=== PATIENT | male | born 1995 | race Caucasian/White ===

== ENCOUNTER 2018-03-05 22:20 | Emergency (ER) | payer MEDICAID, OTHER ==
--- NOTE | 2018-03-05 22:48 | EDM.PDOC ---
ED HPI GENERAL MEDICAL PROBLEM - General Chief Complaint: Lower Extremity Injury/Pain Stated Complaint: STUBBED LEFT TOE Time Seen by Provider: 03/05/18 22:31 Source of Information: Reports: Patient History Limitations: Reports: No Limitations - History of Present Illness INITIAL COMMENTS - FREE TEXT/NARRATIVE: This is a 22-year-old male. This evening she stubbed his left fourth toe on a corner of a wall. The nail started bleeding and he thought he might have an ingrown nail prior to this and he is concerned about the bleeding and may be infection. He is up-to-date with his tetanus. He says the pain went away pretty quickly doesn't think the toe is broken and he doesn't want any x-rays. Left 4-Ring toe Pain Score (Numeric/FACES): 3 - Related Data Allergies Allergy/AdvReac Type Severity Reaction Status Date / Time No Known Allergies Allergy Verified 09/16/14 03:54 Home Meds: Home Meds . [No Known Home Meds] 06/07/14 [History] Past Medical History - Past Health History Medical/Surgical History: Denies Medical/Surgical History - Past Surgical History HEENT Surgical History: Reports: Oral Surgery Social & Family History - Tobacco Use Smoking Status *Q: Former Smoker Years of Tobacco use: 3 Used Tobacco, but Quit: Yes Month/Year Tobacco Last Used: 6 months - Caffeine Use Caffeine Use: Reports: Coffee, Soda, Tea - Alcohol Use Days Per Week of Alcohol Use: 0 - Recreational Drug Use Recreational Drug Use: No Recreational Drug Type: Reports: Marijuana/Hashish Review of Systems - Review of Systems Review Of Systems: See Below Constitutional: Reports: No Symptoms Eyes: Reports: No Symptoms Ears: Reports: No Symptoms Nose: Reports: No Symptoms Mouth/Throat: Reports: No Symptoms Respiratory: Reports: No Symptoms Cardiovascular: Reports: No Symptoms GI/Abdominal: Reports: No Symptoms Genitourinary: Reports: No Symptoms Musculoskeletal: Reports: Other (Injury to the left fourth toe) Skin: Reports: No Symptoms Neurological: Reports: No Symptoms Psychiatric: Reports: No Symptoms ED EXAM, GENERAL - Physical Exam Exam: See Below Exam Limited By: No Limitations General Appearance: Alert, WD/WN, No Apparent Distress Eye Exam: Bilateral Eye: Normal Inspection Ears: Normal External Exam Nose: Normal Inspection Throat/Mouth: Normal Inspection, Normal Lips, Normal Voice, No Airway Compromise Head: Normocephalic Neck: Supple Respiratory/Chest: No Respiratory Distress Back Exam: Full Range of Motion Extremities: Normal Inspection, Normal Range of Motion, Other (Left fourth toe shows some bleeding around the nail and a mild subungual hematoma noted, the nail is not lifted off the nail bed at this time. There is no obvious infection noted, there is no other toe injury on that left foot) Neurological: Alert, Oriented Psychiatric: Normal Affect, Normal Mood Skin Exam: Warm, Dry Course - Vital Signs Last Recorded V/S: Last Vital Signs Temp 98.9 F 03/05/18 22:33 Pulse 96 03/05/18 22:33 Resp 20 03/05/18 22:33 BP 138/75 03/05/18 22:33 Pulse Ox 96 03/05/18 22:33 - Re-Assessments/Exams Free Text/Narrative Re-Assessment/Exam: 03/05/18 22:55 The left fourth toe was cleaned and dressed. Departure - Departure Time of Disposition: 23:00 Disposition: Home, Self-Care 01 Condition: Good Clinical Impression: Contusion of fourth toe, left Qualifiers: Encounter type: initial encounter Qualified Code(s): S90.122A - Contusion of left lesser toe(s) without damage to nail, initial encounter Subungual hematoma of fourth toe of left foot Qualifiers: Encounter type: initial encounter Qualified Code(s): S90.222A - Contusion of left lesser toe(s) with damage to nail, initial encounter - Discharge Information Referrals: PCP,None [Primary Care Provider] - Forms: ED Department Discharge Additional Instructions: Keep the wound clean and dry and covered and use the triple antibiotic ointment , you may take a shower and wash it gently, realized that toenail will come off in the next couple of weeks and a new one will grow back in its place, recheck with your family doctor in 7-10 days or return to the ER if needed
== END 2018-03-05 23:15 | disposition home or self-care (01) ==
LOC: JD.ED 22:20
DX: S90.222A Contusion of left lesser toe(s) with damage to nail, initial encounter (principal); Z87.891 Personal history of nicotine dependence; W22.8XXA Striking against or struck by other objects, initial encounter
CPT/HCPCS: 99282; 99283

== ENCOUNTER 2020-01-24 01:47 | Day surgery (SDC) | payer MEDICAID, OTHER ==
[2020-01-24] MEDS ORDERED: HYDROmorphone 1 MG/ML Syringe IVPUSH ONE (02:13)
[2020-01-24] MEDS ORDERED: Metoclopramide 10 MG/2 ML SDV IVPUSH ONE (02:13)
--- NOTE | 2020-01-24 02:20 | EDM.PDOC ---
ED HPI GENERAL MEDICAL PROBLEM - General Chief Complaint: Abdominal Pain Stated Complaint: abdominal pain Time Seen by Provider: 01/24/20 02:05 Source of Information: Reports: Patient History Limitations: Reports: No Limitations - History of Present Illness INITIAL COMMENTS - FREE TEXT/NARRATIVE: 24-year-old male presents to the ED with diffuse right lower quadrant abdominal pain that is been present since yesterday morning upon awakening. Pain has gradually intensified over the last 20 hours. Last meal was about 1400 hrs. yesterday. Vomited just before coming to the ED of food that he had eaten at 1400 hrs. He vomited twice earlier yesterday as well. Macy hot and flushed and he might be running a fever. Appreciates the pain is worse with deep breathing and coughing. He also appreciate the pain was much worse with hitting any bumps on the rolled driving to the hospital. He has had no pain with voiding. He did have a small bowel movement prior to coming to the ED which was slightly on the looser side without blood. He has had no previous abdominal surgery. Only previous surgery is that is wisdom tooth extraction under anesthetic Onset: Sudden Onset Date: 01/23/20 Onset Time: 07:00 Duration: Hour(s):, Getting Worse Location: Reports: Abdomen Quality: Reports: Ache Severity: Severe Improves with: Reports: Rest (9 out of 10) Worsens with: Reports: Other Context: Denies: Activity (Patient with movement and sitting in the motor vehicle driving.), Exercise, Sick Contact, Trauma, Other Associated Symptoms: Reports: Diaphoresis, Fever/Chills, Loss of Appetite, Nausea/Vomiting, Weakness (Just before coming to the ED.). Denies: No Other Symptoms, Confusion, Chest Pain, Cough, cough w sputum, Headaches, Malaise, Rash , Seizure, Shortness of Breath, Syncope Treatments BRAND LEADER: Reports: Other (see below) (1.) Right Lower Abdomen Pain Score (Numeric/FACES): 8 - Related Data Allergies Allergy/AdvReac Type Severity Reaction Status Date / Time No Known Allergies Allergy Verified 01/24/20 01:56 Home Meds: Home Meds . [No Known Home Meds] 06/07/14 [History] Past Medical History - Past Health History Medical/Surgical History: Denies Medical/Surgical History - Past Surgical History HEENT Surgical History: Reports: Oral Surgery (Or wisdom teeth extraction under sedation) Social & Family History - Tobacco Use Smoking Status *Q: Never Smoker Second Hand Smoke Exposure: No - Caffeine Use Caffeine Use: Reports: Coffee - Recreational Drug Use Recreational Drug Use: No - Living Situation & Occupation Living situation: Reports: Single Occupation: Employed ED ROS GENERAL - Review of Systems Review Of Systems: See Below Constitutional: Reports: Fever, Chills, Malaise, Weakness, Fatigue, Decreased Appetite. Denies: Weight Loss HEENT: Reports: No Symptoms Respiratory: Reports: No Symptoms Cardiovascular: Reports: No Symptoms Endocrine: Reports: No Symptoms GI/Abdominal: Reports: Abdominal Pain (Worsened by touching the area in the right lower quadrant.), Decreased Appetite, Nausea, Vomiting. Denies: Constipation, Diarrhea, Difficulty Swallowing, Distension, Flatus, Hematemesis, Hematochezia, Melena, Mucous in Stool, Stool Incontinence, Other (To 3 times last 24 hours) : Reports: No Symptoms Musculoskeletal: Reports: No Symptoms Skin: Reports: No Symptoms Neurological: Reports: No Symptoms Psychiatric: Reports: No Symptoms Hematologic/Lymphatic: Reports: No Symptoms Immunologic: Reports: No Symptoms ED EXAM, GI/ABD - Physical Exam Exam: See Below Exam Limited By: No Limitations General Appearance: Alert, WD/WN, Moderate Distress, Other (Temperature is 36.8. Pulse is 97 and sinus respiratory is 18 with O2 sats of 96% on room air BP is 131/77.) Eyes: Bilateral: Normal Appearance (No scleral icterus.) Throat/Mouth: Normal Inspection, Normal Lips, Normal Teeth, Normal Oropharynx Head: Atraumatic, Normocephalic Neck: Normal Inspection, Supple, Non-Tender, Full Range of Motion. No: Lymphadenopathy (L), Lymphadenopathy (R) Respiratory/Chest: No Respiratory Distress, Lungs Clear, Normal Breath Sounds, No Accessory Muscle Use, Chest Non-Tender Cardiovascular: Normal Peripheral Pulses, Regular Rate, Rhythm, No Edema, No Gallop, No Murmur, No Rub GI/Abdominal Exam: No Organomegaly, Guarding, Rebound (Over McBurney's point.), Tender (To light percussion in the right lower quadrant of the abdomen over McBurney's point.), Abnormal Bowel Sounds (All signs are very quiesced sent in all 4 quadrants.), Other. No: Distended, Hepatomegaly, Splenomegaly (Male) Exam: No Hernia (No surgical scars) Back Exam: Normal Inspection, Full Range of Motion. No: CVA Tenderness (L), CVA Tenderness (R) Extremities: Normal Inspection, Normal Range of Motion, Non-Tender, No Pedal Edema Neurological: Alert, Oriented, CN II-XII Intact, Normal Cognition Psychiatric: Anxious Skin Exam: Warm, Dry, Intact, Normal Color, Diaphoretic (After having IV started. Feeling very nauseated.) Course - Vital Signs Last Recorded V/S: Last Vital Signs Temp 36.8 C 01/24/20 01:59 Pulse 97 01/24/20 01:59 Resp 18 01/24/20 01:59 BP 131/77 01/24/20 01:59 Pulse Ox 96 01/24/20 01:59 - Orders/Labs/Meds Orders: Active Orders 24 hr Category Date Time Status Patient Status [ADT] Routine ADT 01/24/20 06:16 Active Abdomen Pelvis w Cont [CT] Stat Exams 01/24/20 02:14 Taken URINALYSIS W/MICROSCOPIC [UA W/MICROSCOPIC] [URIN] Stat Lab 01/24/20 02:12 Ordered Dextrose 5%-0.9% NaCl [Dextrose 5%-Normal Saline] 1,000 Med 01/24/20 02:30 Active ml IV ASDIRECTED Dextrose 5%-0.9% NaCl [Dextrose 5%-Normal Saline] 1,000 Med 01/24/20 03:45 Active ml IV ASDIRECTED Schedule Procedure [COMM] Stat Oth 01/24/20 06:15 Ordered Medication Orders Dextrose/Sodium Chloride (Dextrose 5%-Normal Saline) 1,000 mls @ 999 mls/hr IV ASDIRECTED HUBERT Last Admin: 01/24/20 02:23 Dose: 999 mls/hr Dextrose/Sodium Chloride (Dextrose 5%-Normal Saline) 1,000 mls @ 150 mls/hr IV ASDIRECTED HUBERT Last Admin: 01/24/20 03:33 Dose: 150 mls/hr Labs: Laboratory Tests 01/24/20 01/24/20 01/24/20 Range/Units 02:00 02:00 02:20 WBC 16.24 H (4.23-9.07) K/mm3 RBC 4.87 (4.63-6.08) M/mm3 Hgb 15.5 (13.7-17.5) gm/dl Hct 43.9 (40.1-51.0) % MCV 90.1 (79.0-92.2) fl MCH 31.8 (25.7-32.2) pg MCHC 35.3 (32.2-35.5) g/dl RDW Std Deviation 40.3 (35.1-43.9) fL Plt Count 257 (163-337) K/mm3 MPV 9.6 (9.4-12.3) fl Neutrophils % (Manual) 74 H (40-60) % Band Neutrophils % 0 (0-10) % Lymphocytes % (Manual) 17 L (20-40) % Atypical Lymphs % 0 % Monocytes % (Manual) 6 (2-10) % Eosinophils % (Manual) 2 (0.8-7.0) % Basophils % (Manual) 1 (0.2-1.2) Platelet Estimate Adequate RBC Morph Comment Normal Sodium 138 (136-145) mEq/L Potassium 3.6 (3.5-5.1) mEq/L Chloride 99 (98-107) mEq/L Carbon Dioxide 24 (21-32) mEq/L Anion Gap 18.6 H (5-15) BUN 10 (7-18) mg/dL Creatinine 1.2 (0.7-1.3) mg/dL Est Cr Clr Drug Dosing 113.45 mL/min Estimated GFR (MDRD) > 60 (>60) mL/min BUN/Creatinine Ratio 8.3 L (14-18) Glucose 114 H (74-106) mg/dL Lactic Acid 1.8 (0.4-2.0) mmol/L Calcium 8.9 (8.5-10.1) mg/dL Total Bilirubin 0.8 (0.2-1.0) mg/dL AST 45 H (15-37) U/L ALT 148 H (16-63) U/L Alkaline Phosphatase 84 (46-116) U/L C-Reactive Protein 0.7 (<1.0) mg/dL Total Protein 7.7 (6.4-8.2) g/dl Albumin 4.2 (3.4-5.0) g/dl Globulin 3.5 gm/dL Albumin/Globulin Ratio 1.2 (1-2) Lipase 100 (73-393) U/L Meds: Medications Generic Name Dose Route Start Last Admin Trade Name Trevor PRN Reason Stop Dose Admin Dextrose/Sodium Chloride 1,000 mls @ 999 mls/hr 01/24/20 02:30 01/24/20 02:23 Dextrose 5%-Normal Saline IV 999 mls/hr ASDIRECTED HUBERT Administration Dextrose/Sodium Chloride 1,000 mls @ 150 mls/hr 01/24/20 03:45 01/24/20 03:33 Dextrose 5%-Normal Saline IV 150 mls/hr ASDIRECTED HUBERT Administration Discontinued Medications Generic Name Dose Route Start Last Admin Trade Name Trevor PRN Reason Stop Dose Admin Fentanyl Confirm 01/24/20 05:53 Sublimaze Administered 01/24/20 05:54 Dose 250 mcg .ROUTE .STK-MED ONE Hydromorphone HCl 1 mg 01/24/20 02:13 01/24/20 02:24 Dilaudid IVPUSH 01/24/20 02:14 1 mg ONETIME ONE Administration Ertapenem 1 gm/ Sodium 50 mls @ 100 mls/hr 01/24/20 03:12 01/24/20 03:28 Chloride IV 01/24/20 03:41 100 mls/hr ONETIME ONE Administration Lactated Ringer's Confirm 01/24/20 05:45 01/24/20 06:20 Ringers, Lactated Administered 01/24/20 05:46 Not Given Dose 1,000 mls @ as directed .ROUTE .STK-MED ONE Lidocaine HCl Confirm 01/24/20 05:53 Xylocaine-Mpf 1% Administered 01/24/20 05:54 Dose 4 mls @ as directed .ROUTE .STK-MED ONE Lidocaine HCl Confirm 01/24/20 06:00 Xylocaine 1% Administered 01/24/20 06:01 Dose 50 ml .ROUTE .STK-MED ONE Lorazepam 1 mg 01/24/20 03:14 01/24/20 03:25 Ativan IVPUSH 01/24/20 03:15 1 mg ONETIME ONE Administration Metoclopramide HCl 10 mg 01/24/20 02:13 01/24/20 02:23 Reglan IVPUSH 01/24/20 02:14 10 mg ONETIME ONE Administration Midazolam HCl Confirm 01/24/20 05:53 Versed 1 Mg/Ml Administered 01/24/20 05:54 Dose 2 mg .ROUTE .STK-MED ONE Ondansetron HCl Confirm 01/24/20 05:53 Zofran Administered 01/24/20 05:54 Dose 4 mg .ROUTE .STK-MED ONE Propofol Confirm 01/24/20 05:53 Diprivan 20 Ml Administered 01/24/20 05:54 Dose 200 mg .ROUTE .STK-MED ONE Rocuronium [place] Confirm 01/24/20 05:53 Zemuron Administered 01/24/20 05:54 Dose 50 mg .ROUTE .STK-MED ONE - Radiology Interpretation Free Text/Narrative:: 24-year-old male presents to the ED with gradually worsening right and since awakening yesterday morning about 0 700 he states partway through the day he M had emesis x2. Bilious initially. Last meal was at 1400 hrs. yesterday. Since then he has lost his appetite. He vomited about 1700 hrs. last night lost all the food that he had eaten at 1400 hrs. He vomited a small amount of bilious material prior to coming to the ED. He also had one small bowel movement which was slightly on the looser side without any blood just prior to coming to the ED. Due to right lower quadrant abdominal pain and when he pushed on the area gets severe. Pain is worsened by walking coughing and laughing. It was also worsened by riding in the vehicle on the way to the hospital. He has had no previous abdominal surgery. Lamination he appears to be mildly febrile. He is also mildly diaphoretic but feels very nauseated at this time. Exam reveals hardly any bowel sounds present. Tender to percussion in the right lower quadrant over McBurney's point with guarding and rebound highly suggestive of acute appendicitis. No other organomegaly or masses were noted. Plan routine labs will be done to include a serum lipase and CRP. Lactic acid as well. He will receive IV D5 normal saline. Given Reglan 10 mg IV with Dilaudid 1 mg q. pain relief. He has enough body adipose tissue to have CT scan of the abdomen with IV contrast only. - Re-Assessments/Exams Free Text/Narrative Re-Assessment/Exam: 01/24/20 03:05 White count is elevated at 16.24 with 74% neutrophils and no bands cells reported. Hemoglobin is 15.5 with hematocrit of 43.9. Platelet count is 257,000. Sodium is 136 with a potassium of 3.6. Chloride is 99 with a bicarb of 24. Anion gap is elevated at 18.6. BUN is 10 with a creatinine of 1.2. GFR is greater than 60. Glucose is 114 lactic acid is 1.8. Calcium is 8.9. Liver function reveals a normal bilirubin at 0.8. AST is mildly elevated at 45 and ALT is elevated at 148. Alk phos days is 84. C-reactive protein is 0.7. Total protein is 7.7 with an albumin fraction of 4.2. Lipase is [address] of the abdomen pelvis has been completed with IV contrast only. Visualized portions of the lower diaphragm and lungs are clear. Liver is homogeneous with any out any intraductal dilatation. Gallbladder does not contain any calcified gallstones. Pancreas is normal and common bile duct is normal. Adrenal glands are normal. Both kidneys are within normal limits and fill with contrast with no obstruction of the ureters. Bladder fills on delayed film. There is evidence of acute appendicitis in the right lower quadrant with maximal dilatation of the appendix to be 16 mm. It appears to be fluid-filled with an appendicolith. There is several small lymph nodes around this area that are slightly enlarged. There is mild periappendiceal inflammation and stranding. D I will discuss the case with on-call surgeon Dr Valenzuela so that he can be started on antibiotics and likely be operated on later this morning. At present the patient states his pain is controlled and he is feeling much improved. 01/24/20 03:[address] Valenzuela and he has accepted the care of this patient. He will remin in the ED until time of surgery as the hospital is on diversion. He requests a dose of Invanz 1gm IV at this time. Patient will be given Ativan 1mg IV so that he might get some rest prior to surgery. 01/24/20 06:23 Dr Valenzuela is here now and will see the patient in consultation with a view to taking him to surgery Departure - Departure Time of Disposition: 06:24 Disposition: DC/Tfer to [facility] Condition: Fair Clinical Impression: Appendicitis Qualifiers: Appendicitis type: acute appendicitis Acute appendicitis type: with localized peritonitis Appendicitis gangrene presence: unspecified whether gangrene present Appendicitis perforation presence: without perforation Appendicitis abscess presence: without abscess Qualified Code(s): K35.30 - Acute appendicitis with localized peritonitis, without perforation or gangrene - Discharge Information Sepsis Event Note - Evaluation Sepsis Screening Result: No Definite Risk - Focused Exam Vital Signs: Vital Signs Temp Pulse Resp BP Pulse Ox 01/24/20 01:59 36.8 C 97 18 131/77 96 Date Exam was Performed: 01/24/20 Time Exam was Performed: 06:24 - My Orders Last 24 Hours: My Active Orders 01/24/20 02:12 URINALYSIS W/MICROSCOPIC [UA W/MICROSCOPIC] [URIN] Stat 01/24/20 02:14 Abdomen Pelvis w Cont [CT] Stat 01/24/20 02:30 Dextrose 5%-0.9% NaCl [Dextrose 5%-Normal Saline] 1,000 ml IV ASDIRECTED 01/24/20 03:45 Dextrose 5%-0.9% NaCl [Dextrose 5%-Normal Saline] 1,000 ml IV ASDIRECTED - Assessment/Plan Last 24 Hours: My Active Orders 01/24/20 02:12 URINALYSIS W/MICROSCOPIC [UA W/MICROSCOPIC] [URIN] Stat 01/24/20 02:14 Abdomen Pelvis w Cont [CT] Stat 01/24/20 02:30 Dextrose 5%-0.9% NaCl [Dextrose 5%-Normal Saline] 1,000 ml IV ASDIRECTED 01/24/20 03:45 Dextrose 5%-0.9% NaCl [Dextrose 5%-Normal Saline] 1,000 ml IV ASDIRECTED
[2020-01-24] MEDS ORDERED: Dextrose 5%-0.9% NaCl 1,000 ML IV SCH ×2 (02:30→03:45)
[2020-01-24] MEDS ORDERED: Ertapenem 1 GM in Sodium Chloride 0.9% 50 ML IV ONE (03:12)
[2020-01-24] MEDS ORDERED: LORazepam 2 MG/ML SDV IVPUSH ONE (03:14)
[2020-01-24] MEDS ORDERED: Lactated Ringers 1,000 ML ONE (05:45)
[2020-01-24] MEDS ORDERED: Midazolam 1 MG/ML 2 ML SDV ONE (05:53)
[2020-01-24] MEDS ORDERED: fentaNYL 250 MCG/5 ML SDV ONE (05:53)
[2020-01-24] MEDS ORDERED: Propofol 200 MG/20 ML SDV ONE (05:53)
[2020-01-24] MEDS ORDERED: Lidocaine 1% 4 ML ONE (05:53)
[2020-01-24] MEDS ORDERED: Ondansetron 4 MG/2 ML SDV ONE ×2 (05:53→07:49)
[2020-01-24] MEDS ORDERED: Rocuronium 50 MG/5 ML Vial ONE (05:53)
[2020-01-24] MEDS ORDERED: Lidocaine 1% 50 ML MDV ONE (06:00)
--- NOTE | 2020-01-24 06:06 | PCM.PREANE ---
Preanesthetic Assessment - Procedure Proposed Procedure: lap appy - Anesthesia/Transfusion/Family Hx Anesthesia History: Prior Anesthesia Without Reaction Family History of Anesthesia Reaction: No Transfusion History: No Prior Transfusion(s) - Review of Systems General: No Symptoms Pulmonary: Shortness of Breath (can't get a deep breath), Cough (because vomiting so much) Cardiovascular: No Symptoms Gastrointestinal: Abdominal Pain (started thursday am), Nausea, Vomiting Neurological: No Symptoms Other: Reports: None, Sinus Problem - Physical Assessment NPO Status Date: 01/23/20 NPO Status Time: 12:00 Vital Signs: Last Vital Signs Temp 98.2 F 01/24/20 01:59 Pulse 97 01/24/20 01:59 Resp 18 01/24/20 01:59 BP 131/77 01/24/20 01:59 Pulse Ox 96 01/24/20 01:59 Height: 6 ft 3 in Weight: 108.862 kg ASA Class: 2E Mental Status: Alert & Oriented x3 Airway Class: Mallampati = 1 Dentition: Reports: Normal Dentition Thyro-Mental Finger Breadths: 3 Mouth Opening Finger Breadths: 3 ROM/Head Extension: Full Lungs: Clear to Auscultation, Normal Respiratory Effort Cardiovascular: Regular Rate, Regular Rhythm - Lab Values: Laboratory Last Values WBC 16.24 K/mm3 (4.23-9.07) H 01/24/20 02:00 RBC 4.87 M/mm3 (4.63-6.08) 01/24/20 02:00 Hgb 15.5 gm/dl (13.7-17.5) 01/24/20 02:00 Hct 43.9 % (40.1-51.0) 01/24/20 02:00 MCV 90.1 fl (79.0-92.2) 01/24/20 02:00 MCH 31.8 pg (25.7-32.2) 01/24/20 02:00 MCHC 35.3 g/dl (32.2-35.5) 01/24/20 02:00 RDW Std Deviation 40.3 fL (35.1-43.9) 01/24/20 02:00 Plt Count 257 K/mm3 (163-337) 01/24/20 02:00 MPV 9.6 fl (9.4-12.3) 01/24/20 02:00 Neutrophils % (Manual) 74 % (40-60) H 01/24/20 02:00 Band Neutrophils % 0 % (0-10) 01/24/20 02:00 Lymphocytes % (Manual) 17 % (20-40) L 01/24/20 02:00 Atypical Lymphs % 0 % 01/24/20 02:00 Monocytes % (Manual) 6 % (2-10) 01/24/20 02:00 Eosinophils % (Manual) 2 % (0.8-7.0) 01/24/20 02:00 Basophils % (Manual) 1 (0.2-1.2) 01/24/20 02:00 Platelet Estimate Adequate 01/24/20 02:00 RBC Morph Comment Normal 01/24/20 02:00 Sodium 138 mEq/L (136-145) 01/24/20 02:00 Potassium 3.6 mEq/L (3.5-5.1) 01/24/20 02:00 Chloride 99 mEq/L (98-107) 01/24/20 02:00 Carbon Dioxide 24 mEq/L (21-32) 01/24/20 02:00 Anion Gap 18.6 (5-15) H 01/24/20 02:00 BUN 10 mg/dL (7-18) 01/24/20 02:00 Creatinine 1.2 mg/dL (0.7-1.3) 01/24/20 02:00 Est Cr Clr Drug Dosing 113.45 mL/min 01/24/20 02:00 Estimated GFR (MDRD) > 60 mL/min (>60) 01/24/20 02:00 BUN/Creatinine Ratio 8.3 (14-18) L 01/24/20 02:00 Glucose 114 mg/dL (74-106) H 01/24/20 02:00 Lactic Acid 1.8 mmol/L (0.4-2.0) 01/24/20 02:20 Calcium 8.9 mg/dL (8.5-10.1) 01/24/20 02:00 Total Bilirubin 0.8 mg/dL (0.2-1.0) 01/24/20 02:00 AST 45 U/L (15-37) H 01/24/20 02:00 ALT 148 U/L (16-63) H 01/24/20 02:00 Alkaline Phosphatase 84 U/L (46-116) 01/24/20 02:00 C-Reactive Protein 0.7 mg/dL (<1.0) 01/24/20 02:00 Total Protein 7.7 g/dl (6.4-8.2) 01/24/20 02:00 Albumin 4.2 g/dl (3.4-5.0) 01/24/20 02:00 Globulin 3.5 gm/dL 01/24/20 02:00 Albumin/Globulin Ratio 1.2 (1-2) 01/24/20 02:00 Lipase 100 U/L (73-393) 01/24/20 02:00 - Allergies Allergies/Adverse Reactions: Allergies Allergy/AdvReac Type Severity Reaction Status Date / Time No Known Allergies Allergy Verified 01/24/20 01:56 - Blood Blood Available: No - Acknowledgements Anesthesia Type Planned: General Anesthesia Pt an Appropriate Candidate for the Planned Anesthesia: Yes Alternatives and Risks of Anesthesia Discussed w Pt/Guardian: Yes Pt/Guardian Understands and Agrees with Anesthesia Plan: Yes PreAnesthesia Questionnaire - Past Health History Medical/Surgical History: Denies Medical/Surgical History Cardiovascular History: Reports: None Respiratory History: Reports: Other (See Below) (gets pneumonia often- has inhaler) Gastrointestinal History: Reports: GERD (since yesterday) Endocrine/Metabolic History: Reports: Obesity/BMI 30+ - Past Surgical History HEENT Surgical History: Reports: Oral Surgery (Or wisdom teeth extraction under sedation) - History Comment History Comment: muscle relaxant - SUBSTANCE USE Smoking Status *Q: Former Smoker (quit 8 months ago) Tobacco Use Within Last Twelve Months: Cigarettes Second Hand Smoke Exposure: Yes Days Per Week of Alcohol Use: 5 Number of Drinks Per Day: 3 Total Drinks Per Week: 15 Recreational Drug Use History: No - HOME MEDS Home Medications: Home Meds . [No Known Home Meds] 06/07/14 [History] - CURRENT (IN HOUSE) MEDS Current Meds: Current Medications Dextrose/Sodium Chloride (Dextrose 5%-Normal Saline) 1,000 mls @ 999 mls/hr IV ASDIRECTED [facility] Last Admin: 01/24/20 02:23 Dose: 999 mls/hr Dextrose/Sodium Chloride (Dextrose 5%-Normal Saline) 1,000 mls @ 150 mls/hr IV ASDIRECTED [facility] Last Admin: 01/24/20 03:33 Dose: 150 mls/hr Discontinued Medications Fentanyl (Sublimaze) Confirm Administered Dose 250 mcg .ROUTE .STK-MED ONE Stop: 01/24/20 05:54 Hydromorphone HCl (Dilaudid) 1 mg IVPUSH ONETIME ONE Stop: 01/24/20 02:14 Last Admin: 01/24/20 02:24 Dose: 1 mg Ertapenem 1 gm/ Sodium (Chloride) 50 mls @ 100 mls/hr IV ONETIME ONE Stop: 01/24/20 03:41 Last Admin: 01/24/20 03:28 Dose: 100 mls/hr Lactated Ringer's (Ringers, Lactated) Confirm Administered Dose 1,000 mls @ as directed .ROUTE .STK-MED ONE Stop: 01/24/20 05:46 Lidocaine HCl (Xylocaine-Mpf 1%) Confirm Administered Dose 4 mls @ as directed .ROUTE .STK-MED ONE Stop: 01/24/20 05:54 Lorazepam (Ativan) 1 mg IVPUSH ONETIME ONE Stop: 01/24/20 03:15 Last Admin: 01/24/20 03:25 Dose: 1 mg Metoclopramide HCl (Reglan) 10 mg IVPUSH ONETIME ONE Stop: 01/24/20 02:14 Last Admin: 01/24/20 02:23 Dose: 10 mg Midazolam HCl (Versed 1 Mg/Ml) Confirm Administered Dose 2 mg .ROUTE .STK-MED ONE Stop: 01/24/20 05:54 Ondansetron HCl (Zofran) Confirm Administered Dose 4 mg .ROUTE .STK-MED ONE Stop: 01/24/20 05:54 Propofol (Diprivan 20 Ml) Confirm Administered Dose 200 mg .ROUTE .STK-MED ONE Stop: 01/24/20 05:54 Rocuronium Spickard (Zemuron) Confirm Administered Dose 50 mg .ROUTE .STK-MED ONE Stop: 01/24/20 05:54
--- NOTE | 2020-01-24 06:28 | PCM.HP.2 ---
H&P History of Present Illness - General Date of Service: 01/24/20 Admit Problem/Dx: Admission Diagnosis/Problem Admission Diagnosis/Problem Appendectomy Source of Information: Patient History Limitations: Reports: No Limitations - History of Present Illness Initial Comments - Free Text/Narative: Patient started having RLQ abdominal pain since 01/23/2020 AM. Pain was 5/10, progressively worse over the day. Had nausea and vomiting at night. This [employer], the pain became severe and presented to the ED where CT confirmed acute appendicitis. Onset of Symptoms: Reports: Gradual Duration of Symptoms: Reports: Day(s):, Getting Worse Location: Reports: Abdomen Quality: Reports: Ache Severity: Severe Improves with: Reports: Immobilization Worsens with: Reports: Movement Associated Symptoms: Reports: Nausea/Vomiting Right Lower Abdomen Pain Score (Numeric/FACES): 8 - Related Data Allergies/Adverse Reactions: Allergies Allergy/AdvReac Type Severity Reaction Status Date / Time No Known Allergies Allergy Verified 01/24/20 01:56 Home Medications: Home Meds . [No Known Home Meds] 06/07/14 [History] Past Medical History - Past Health History Medical/Surgical History: Denies Medical/Surgical History Cardiovascular History: Reports: None Respiratory History: Reports: Other (See Below) (gets pneumonia often- has inhaler) Gastrointestinal History: Reports: GERD (since yesterday) Endocrine/Metabolic History: Reports: Obesity/BMI 30+ - Past Surgical History HEENT Surgical History: Reports: Oral Surgery (Or wisdom teeth extraction under sedation) - History Comment History Comment: muscle relaxant Social & Family History - Tobacco Use Smoking Status *Q: Former Smoker (quit 8 months ago) Second Hand Smoke Exposure: Yes - Caffeine Use Caffeine Use: Reports: Coffee - Alcohol Use Days Per Week of Alcohol Use: 5 Number of Drinks Per Day: 3 Total Drinks Per Week: 15 - Recreational Drug Use Recreational Drug Use: No - Living Situation & Occupation Living situation: Reports: Single Occupation: Employed H&P Review of Systems - Review of Systems: Review Of Systems: See Below General: Reports: No Symptoms HEENT: Reports: No Symptoms Pulmonary: Reports: No Symptoms Cardiovascular: Reports: No Symptoms Gastrointestinal: Reports: Abdominal Pain, Anorexia Genitourinary: Reports: No Symptoms Musculoskeletal: Reports: No Symptoms Skin: Reports: No Symptoms Psychiatric: Reports: No Symptoms Neurological: Reports: No Symptoms Exam - Exam Exam: See Below - Vital Signs Vital Signs: Last Vital Signs Temp 98.2 F 01/24/20 01:59 Pulse 97 01/24/20 01:59 Resp 18 01/24/20 01:59 BP 131/77 01/24/20 01:59 Pulse Ox 96 01/24/20 01:59 Weight: 108.862 kg - Exam General: Alert, Oriented, Cooperative, Mild Distress HEENT: Conjunctiva Clear Lungs: Clear to Auscultation, Normal Respiratory Effort Cardiovascular: Regular Rate, Regular Rhythm, Normal S1, Normal S2 GI/Abdominal Exam: Soft, No Mass, Guarding (RLQ), Tender (RLQ) - Patient Data Lab Results Last 24 hrs: Laboratory Results - last 24 hr 01/24/20 01/24/20 01/24/20 Range/Units 02:00 02:00 02:20 WBC 16.24 H (4.23-9.07) K/mm3 RBC 4.87 (4.63-6.08) M/mm3 Hgb 15.5 (13.7-17.5) gm/dl Hct 43.9 (40.1-51.0) % MCV 90.1 (79.0-92.2) fl MCH 31.8 (25.7-32.2) pg MCHC 35.3 (32.2-35.5) g/dl RDW Std Deviation 40.3 (35.1-43.9) fL Plt Count 257 (163-337) K/mm3 MPV 9.6 (9.4-12.3) fl Neutrophils % (Manual) 74 H (40-60) % Band Neutrophils % 0 (0-10) % Lymphocytes % (Manual) 17 L (20-40) % Atypical Lymphs % 0 % Monocytes % (Manual) 6 (2-10) % Eosinophils % (Manual) 2 (0.8-7.0) % Basophils % (Manual) 1 (0.2-1.2) Platelet Estimate Adequate RBC Morph Comment Normal Sodium 138 (136-145) mEq/L Potassium 3.6 (3.5-5.1) mEq/L Chloride 99 (98-107) mEq/L Carbon Dioxide 24 (21-32) mEq/L Anion Gap 18.6 H (5-15) BUN 10 (7-18) mg/dL Creatinine 1.2 (0.7-1.3) mg/dL Est Cr Clr Drug Dosing 113.45 mL/min Estimated GFR (MDRD) > 60 (>60) mL/min BUN/Creatinine Ratio 8.3 L (14-18) Glucose 114 H (74-106) mg/dL Lactic Acid 1.8 (0.4-2.0) mmol/L Calcium 8.9 (8.5-10.1) mg/dL Total Bilirubin 0.8 (0.2-1.0) mg/dL AST 45 H (15-37) U/L ALT 148 H (16-63) U/L Alkaline Phosphatase 84 (46-116) U/L C-Reactive Protein 0.7 (<1.0) mg/dL Total Protein 7.7 (6.4-8.2) g/dl Albumin 4.2 (3.4-5.0) g/dl Globulin 3.5 gm/dL Albumin/Globulin Ratio 1.2 (1-2) Lipase 100 (73-393) U/L Result Diagrams: 01/24/20 02:00 01/24/20 02:00 Sepsis Event Note - Evaluation Sepsis Screening Result: No Definite Risk - Focused Exam Vital Signs: Vital Signs Temp Pulse Resp BP Pulse Ox 01/24/20 01:59 98.2 F 97 18 131/77 96 Date Exam was Performed: 01/24/20 Time Exam was Performed: 06:24 Problem List Initiated/Reviewed/Updated: No Orders Last 24hrs: Active Orders 24 hr Category Date Time Status Patient Status [ADT] Routine ADT 01/24/20 06:16 Active Abdomen Pelvis w Cont [CT] Stat Exams 01/24/20 02:14 Taken URINALYSIS W/MICROSCOPIC [UA W/MICROSCOPIC] [URIN] Stat Lab 01/24/20 02:12 Ordered Dextrose 5%-0.9% NaCl [Dextrose 5%-Normal Saline] 1,000 Med 01/24/20 02:30 Active ml IV ASDIRECTED Dextrose 5%-0.9% NaCl [Dextrose 5%-Normal Saline] 1,000 Med 01/24/20 03:45 Active ml IV ASDIRECTED Schedule Procedure [COMM] Stat Oth 01/24/20 06:15 Ordered Medication Orders Dextrose/Sodium Chloride (Dextrose 5%-Normal Saline) 1,000 mls @ 999 mls/hr IV ASDIRECTED [facility] Last Admin: 01/24/20 02:23 Dose: 999 mls/hr Dextrose/Sodium Chloride (Dextrose 5%-Normal Saline) 1,000 mls @ 150 mls/hr IV ASDIRECTED [facility] Last Admin: 01/24/20 03:33 Dose: 150 mls/hr Assessment/Plan Comment:: ACute appendicitis. We will proceed with laparoscopic appendectomy, possible open. We discussed risks, benefits and alternatives. Risks discussed include infection, injury to adjacent structures, infection, abscess, complication including leak, reaction to medications. Questions answered, informed consent obtained. - Mortality Measure Prognosis:: Good
[2020-01-24] MEDS ORDERED: HYDROmorphone 0.5 MG/0.5 ML Syringe ONE ×2 (06:58→07:21)
[2020-01-24] MEDS ORDERED: Ondansetron 4 MG/2 ML SDV IVPUSH PRN ×2 (07:12→10:35)
[2020-01-24] MEDS ORDERED: HYDROmorphone 0.5 MG/0.5 ML Syringe IVPUSH PRN (07:12)
[2020-01-24] MEDS ORDERED: fentaNYL 100 MCG/2 ML SDV IVPUSH PRN (07:12)
--- NOTE | 2020-01-24 07:19 | CT ---
CT abdomen and pelvis Technique: Multiple axial sections were obtained from above the dome of the diaphragm inferiorly through the pubic symphysis. Intravenous contrast was utilized. No oral contrast has been given. Delayed images were also obtained through the pelvis. Comparison: No prior abdominal imaging is available. Findings: Dilated appendix is seen within the right abdomen. Surrounding inflammatory change is noted. Findings are compatible with appendicitis. Appendix extends below the inferior tip of the liver. Visualized lung bases show nothing acute. Diffuse fatty infiltration is identified within the liver. Spleen appears within normal limits. Small hiatal hernia is present. Adrenal glands show no nodule. Kidneys show symmetric contrast enhancement without hydronephrosis or mass. Aorta shows no aneurysm. No retroperitoneal adenopathy or mesenteric abnormalities are seen. No pelvic mass or adenopathy is seen. Delayed images show contrast within the distal ureters and within the bladder. No free fluid is seen. Bone window settings were reviewed which appear within normal limits for the patient's age. No acute osseous finding is identified. Impression: 1. Findings compatible with appendicitis as described above. 2. Fatty infiltration within the liver. 3. Other findings which are nonacute as noted above. Diagnostic code #5 This report was dictated in [place] Standard Time I agree with preliminary report from [facility], finalized on 01/24/20, 4:01 AM Central Time
[2020-01-24] MEDS ORDERED: fentaNYL 100 MCG/2 ML SDV ONE (07:35)
[2020-01-24] MEDS ORDERED: Ketorolac 30 MG/ML SDV ONE (07:35)
[2020-01-24] MEDS ORDERED: Lactated Ringers 1,000 ML IV SCH (08:07)
--- NOTE | 2020-01-24 08:11 | PCM.POSTAN ---
POST ANESTHESIA ASSESSMENT - MENTAL STATUS Mental Status: Alert, Oriented - VITAL SIGNS Vital Signs: Last Vital Signs Temp 98.2 F 01/24/20 01:59 Pulse 97 01/24/20 01:59 Resp 18 01/24/20 01:59 BP 131/77 01/24/20 01:59 Pulse Ox 96 01/24/20 01:59 1500/81 99% 109 12 98.5 - RESPIRATORY Respiratory Status: Respiratory Rate WNL, Airway Patent, O2 Saturation Stable, Supplemental Oxygen - CARDIOVASCULAR CV Status: Pulse Rate WNL, Blood Pressure Stable - GASTROINTESTINAL GI Status: No Symptoms - PAIN Pain Score: 0 - POST OP HYDRATION Hydration Status: Adequate & Stable
--- NOTE | 2020-01-24 08:47 | PCM48HPAN ---
Post Anesthesia Note - EVALUATION WITHIN 48HRS OF ANESTHETIC Vital Signs in Normal Range: Yes Patient Participated in Evaluation: Yes Respiratory Function Stable: Yes Airway Patent: Yes Cardiovascular Function Stable: Yes Hydration Status Stable: Yes Pain Control Satisfactory: Yes Nausea and Vomiting Control Satisfactory: Yes Mental Status Recovered: Yes (rests- no complaints) Vital Signs: Last Vital Signs Temp 98.4 F 01/24/20 08:07 Pulse 97 01/24/20 01:59 Resp 18 01/24/20 08:30 BP 144/73 H 01/24/20 08:30 Pulse Ox 92 L 01/24/20 08:30
--- NOTE | 2020-01-24 09:01 | OR ---
DATE OF OPERATION: 01/24/2020 SURGEON: Brenda Valenzuela MD PREOPERATIVE DIAGNOSIS: Acute appendicitis. POSTOPERATIVE DIAGNOSIS: Acute appendicitis. OPERATION PERFORMED: Laparoscopic appendectomy. ANESTHESIA: General endotracheal. FINDINGS: Inflamed appendix without perforation. COMPLICATIONS: None. ESTIMATED BLOOD LOSS: About 10 mL. INDICATION AND CONSENT: The patient is a 24-year-old male who started having a right lower quadrant abdominal pain since yesterday morning and this progressively got worse. He vomited after dinner and then decided to come to the emergency department. White count was 16. CT scan confirmed acute appendicitis without abscess. I was consulted to see the patient, so the patient confirmed the findings on both the CT and physical examination. I offered the patient laparoscopic appendectomy. We discussed risks, benefits, and alternatives. Risks discussed included, but not limited to, bleeding, infection, abscess, wound complications, injury to the rest of the abdominal structures, leak, reaction to medication, blood clots. The patient agreed to proceed with the procedure and informed consent was obtained. DESCRIPTION OF PROCEDURE: The patient was taken to the operating room, placed in supine position. Following induction of anesthesia, hair was clipped from the abdomen. SCDs were placed. The patient already had received Invanz for antibiotics, so no additional antibiotics were indicated. The patient was appropriately padded. Then, the abdomen was prepped and draped in the usual sterile fashion. A formal time-out was performed prior to the start of the procedure. Began procedure by injecting local anesthetic consisting 1% lidocaine. In the infraumbilical position, incision was made. Umbilical stalk was grasped and elevated and a Veress needle was introduced at this site and the abdomen was insufflated to 15 mmHg with CO2. Then, a 12 trocar was inserted under direct visualization of laparoscope and then laparoscope was inserted into the abdomen. Inspection did not reveal any injury due to trocar insertion or Veress needle insertion. Then, inspection of the rest of the abdomen appeared to be normal. There were no signs of abscess. Next, we placed two additional 5 mm trocar, one in the left lower quadrant and another one in the suprapubic area. The appendix was found to be in the right lower quadrant, this was elevated. The small bowel was draped over the appendix and attempts to remove this were done. However, due to lateral attachment, it was not able to completely be taken off the appendix. Therefore, one more additional 5 mm trocar was placed in the right upper quadrant for retraction and the small bowel was retracted away from the appendiceal base. Window was made under the appendiceal bed with the [place] instrument. Then, a 55 mm blue load was used to transect the appendix at its base using an Endo-PATRIA stapler. Once this was done, the mesoappendix was also transected with a white load 15 mm and the rest of the attachments were taken off with the scissors. The appendix was placed in the Endo Catch bag. The dissection site was suctioned and irrigated. Staple lines were visualized and there was no additional bleeding and appeared to be intact. At this point, the appendix was then removed from the abdomen through the umbilical incision and the umbilical incision was then reapproximated with 0 Vicryl stitches using Jordan-Alvaro device. Then, once again, the abdomen was inspected and found to be no other abnormalities. The patient was flattened and the rest of the trocars were removed after the abdomen was desufflated. The skin was reapproximated using 4-0 Monocryl stitches and Dermabond was applied. This marked the end of the procedure. At the end of the procedure, instruments, sharps, and sponges were counted and found to be correct x2. The patient was awoken from general anesthesia, extubated, and taken to the PACU in stable condition. The patient will be observed for a few hours to make sure the patient's pain is controlled and is tolerating a diet before being discharged home likely today. The patient will come back in 2 weeks for postop check. MMODAL /[id number] JANELL
[2020-01-24] MEDS: traMADol 50 MG Tab PO PRN ×2 (09:28→16:54)
[2020-01-24] MEDS ORDERED: Scopolamine 1.5 MG Transdermal Patch TRDERM PRN (15:22)
== END 2020-01-24 17:00 | disposition home or self-care (01) ==
LOC: JD.ED 01:47 → JD.SDS 05:52 → JD.MS 13:36 → JD.SDS 17:00
PROVIDERS: ATTEND Surgery
DX: K35.30 Acute appendicitis with localized peritonitis, without perforation or gangrene (principal)
CPT/HCPCS: 36415; 74177; 80053; 83605; 83690; 85007; 85027; 86140; 96361; 96365; 96375; 99285; A9270; J1170; J1335; J1885; J2001; J2060; J2250; J2405; J2704; J2765; J3010; J7042; J7050; J7120; 00840

== ENCOUNTER 2020-01-26 07:46 | Emergency (ER) | payer MEDICAID ==
[2020-01-26] MEDS ORDERED: Ondansetron 4 MG/2 ML SDV IVPUSH ONE (08:35)
[2020-01-26] MEDS ORDERED: HYDROmorphone 0.5 MG/0.5 ML Syringe IVPUSH ONE (08:36)
[2020-01-26] MEDS ORDERED: Sodium Chloride 0.9% 10 ML Syringe FLUSH ONE (08:42)
[2020-01-26] MEDS ORDERED: Diatrizoate Meglumine/Diatrizoate Sodium 37% 120 ML Bottle PO ONE (08:42)
[2020-01-26] MEDS ORDERED: Iopamidol 612 MG/ML 100 ML Bottle IVPUSH ONE (08:42)
[2020-01-26] MEDS ORDERED: Sodium Chloride 0.9% 1,000 ML IV SCH (08:45)
--- NOTE | 2020-01-26 08:48 | EDM.PDOC ---
<Leilani Verdugo - Last Filed: 01/26/20 08:35> ED HPI GENERAL MEDICAL PROBLEM - General Chief Complaint: Abdominal Pain Stated Complaint: APPENDIX REMOVED/PAIN-TIGHTNESS Time Seen by Provider: 01/26/20 08:03 Source of Information: Reports: Patient, Significant Other History Limitations: Reports: No Limitations - History of Present Illness INITIAL COMMENTS - FREE TEXT/NARRATIVE: Patient is a pleasant 24-year-old male who recently underwent an laparoscopic appendectomy on 01/24/[address] Benitez. He presents to the ED for abdominal tightness, lower abdominal pain, and redness around umbilical incision. He states the surgery went well and had no complications. He states he felt well in the hospital after surgery, but during the car ride home he started developing abdominal tightness and pain. The tightness is located mainly in the lower abdomen and the pain is most intense in the left lower quadrant. He was provided a prescription for Tramadol 50 mg tablets after surgery and he has taken all 12 tablets since being discharged. Yesterday at noon he took two gentle laxative tablets because he had not had a bowel movement since the morning of the . No bowel movement yesterday, but he reports this morning at around 0530 he had a bowel movement. He reports it was a large watery bowel movement, no blood was noted within the stool. He has been passing gas. He also has a 5 cm x 7 cm area of erythema inferior to the umbilical incision. He noticed a small area of redness yesterday morning and it has increased in size over the past 24 hours. The area is warm to touch. The other three incisions are healing well. He feels like he has been feverish for the past 24 hours, but has not taken his temperature. His significant other states every night since the surgery he sweats through his clothes and the sheets. He also states since surgery his right testicle is not descended as much as it use to be. He states "when I sit it feels like there is a string attached and someone is pulling it back up into my stomach." He denies chest pain and shortness of breath. He does not feel nauseous, but he has been wearing a Scopolamine patch since surgery. Abdomen Pain Score (Numeric/FACES): 8 - Related Data Allergies Allergy/AdvReac Type Severity Reaction Status Date / Time No Known Allergies Allergy Verified 01/26/20 08:08 Home Meds: Home Meds Docusate Sodium [Colace] 100 mg PO Q12HR 15 Days #30 capsule 01/24/20 [Rx] traMADol [Ultram] 50 mg PO Q6H PRN 3 Days #12 tab 01/24/20 [Rx] Amoxicillin/Potassium Clav [Augmentin 875-125 Tablet] 1 each PO BID #20 tablet 01/26/20 [Rx] Hydrocodone/Acetaminophen [Hydrocodon-Acetaminophen 5-325] 1 - 2 each PO Q6HR PRN #20 tablet 01/26/20 [Rx] Past Medical History - Past Health History Medical/Surgical History: Denies Medical/Surgical History Cardiovascular History: Reports: None Respiratory History: Reports: Other (See Below) Gastrointestinal History: Reports: GERD Endocrine/Metabolic History: Reports: Obesity/BMI 30+ - Past Surgical History HEENT Surgical History: Reports: Oral Surgery GI Surgical History: Reports: Appendectomy - History Comment History Comment: muscle relaxant Social & Family History - Tobacco Use Smoking Status *Q: Never Smoker - Caffeine Use Caffeine Use: Reports: Energy Drinks - Recreational Drug Use Recreational Drug Use: No - Living Situation & Occupation Living situation: Reports: Single Occupation: Employed ED ROS GENERAL - Review of Systems Review Of Systems: See Below Constitutional: Reports: Fever, Chills, Night Sweats, Diaphoresis, Decreased Appetite. Denies: Weakness, Fatigue Respiratory: Reports: No Symptoms. Denies: Shortness of Breath, Cough Cardiovascular: Reports: No Symptoms. Denies: Chest Pain, Edema, Lightheadedness, Syncope GI/Abdominal: Reports: Abdominal Pain (left lower quadrant and tightness throughout the lower quadrants), Decreased Appetite. Denies: Black Stool, Bloody Stool, Diarrhea, Nausea, Vomiting : Reports: No Symptoms. Denies: Dysuria Musculoskeletal: Reports: No Symptoms. Denies: Neck Pain, Shoulder Pain, Back Pain Skin: Reports: Diaphoresis, Erythema (around umbilical incision), Other ( flushed face) Neurological: Reports: No Symptoms. Denies: Dizziness, Headache, Numbness, Syncope, Tingling Psychiatric: Reports: No Symptoms ED EXAM, GI/ABD - Physical Exam Exam: See Below Exam Limited By: No Limitations General Appearance: Alert, WD/WN, Mild Distress Head: Atraumatic, Normocephalic Respiratory/Chest: No Respiratory Distress, Lungs Clear, Normal Breath Sounds, No Accessory Muscle Use, Chest Non-Tender Cardiovascular: Normal Peripheral Pulses, Regular Rate, Rhythm, No Edema, No Gallop, No Murmur, No Rub GI/Abdominal Exam: Soft, No Organomegaly, No Mass, Distended, Tender (right lower and left lower quadrants), Abnormal Bowel Sounds (decreased) Back Exam: Normal Inspection, Full Range of Motion, NT Extremities: Normal Inspection, Normal Range of Motion, Non-Tender, Normal Capillary Refill, No Pedal Edema Neurological: Alert, Oriented, Normal Cognition, Normal Gait, No Motor/Sensory Deficits Psychiatric: Normal Affect, Normal Mood Skin Exam: Warm, Dry, Intact, No Rash, Other (face is flushed and he is sweating. 5 x 7 cm area of erythema inferior to umbilical incision, warm to touch. ) Lymphatic: No Adenopathy Course - Vital Signs Last Recorded V/S: Last Vital Signs Temp 97.8 F 01/26/20 08:05 Pulse 71 01/26/20 08:05 Resp 16 01/26/20 08:05 BP 141/83 H 01/26/20 08:05 Pulse Ox 98 01/26/20 08:05 - Orders/Labs/Meds Orders: Active Orders 24 hr Category Date Time Status Peripheral IV Care [RC] . DIRECTED Care 01/26/20 08:36 Active Sodium Chloride 0.9% [Normal Saline] 1,000 ml Med 01/26/20 08:45 Active IV ASDIRECTED Sodium Chloride 0.9% [Saline Flush] Med 01/26/20 08:35 Active 10 ml FLUSH ASDIRECTED PRN ED Antiemetic Medication Reflex [OM.PC] Stat Oth 01/26/20 08:35 Ordered Peripheral IV Insertion Adult [OM.PC] Stat Oth 01/26/20 08:35 Ordered Medication Orders Sodium Chloride (Normal Saline) 1,000 mls @ 125 mls/hr IV ASDIRECTED HUBERT Last Admin: 01/26/20 09:00 Dose: 125 mls/hr Sodium Chloride (Saline Flush) 10 ml FLUSH ASDIRECTED PRN PRN Reason: Keep Vein Open Last Admin: 01/26/20 09:51 Dose: 10 ml Admin: 01/26/20 09:02 Dose: 10 ml Labs: Laboratory Tests 01/26/20 01/26/2001/26/20 Range/Units 08:55 08:55 09:41 WBC 11.82 H (4.23-9.07) K/mm3 RBC 4.29 L (4.63-6.08) M/mm3 Hgb 13.7 D (13.7-17.5) gm/dl Hct 40.0 L (40.1-51.0) % MCV 93.2 H D (79.0-92.2) fl MCH 31.9 (25.7-32.2) pg MCHC 34.3 (32.2-35.5) g/dl RDW Std Deviation 40.7 (35.1-43.9) fL Plt Count 219 (163-337) K/mm3 MPV 9.7 (9.4-12.3) fl Neut % (Auto) 79.4 H (34.0-67.9) % Lymph % (Auto) 8.2 L (21.8-53.1) % [place] % (Auto) 10.4 (5.3-12.2) % Eos % (Auto) 1.4 (0.8-7.0) Baso % (Auto) 0.3 (0.1-1.2) % Neut # (Auto) 9.40 H (1.78-5.38) K/mm3 Lymph # (Auto) 0.97 L (1.32-3.57) K/mm3 [place] # (Auto) 1.23 H (0.30-0.82) K/mm3 Eos # (Auto) 0.16 (0.04-0.54) K/mm3 Baso # (Auto) 0.03 (0.01-0.08) K/mm3 Manual Slide Review Normal smear Sodium 134 L (136-145) mEq/L Potassium 3.7 (3.5-5.1) mEq/L Chloride 97 L (98-107) mEq/L Carbon Dioxide 25 (21-32) mEq/L Anion Gap 15.7 H (5-15) BUN 9 (7-18) mg/dL Creatinine 1.0 (0.7-1.3) mg/dL Est Cr Clr Drug Dosing 136.14 mL/min Estimated GFR (MDRD) > 60 (>60) mL/min BUN/Creatinine Ratio 9.0 L (14-18) Glucose 110 H (74-106) mg/dL Calcium 8.8 (8.5-10.1) mg/dL Total Bilirubin 1.5 H (0.2-1.0) mg/dL AST 34 (15-37) U/L ALT 85 H (16-63) U/L Alkaline Phosphatase 91 (46-116) U/L Total Protein 7.6 (6.4-8.2) g/dl Albumin 3.6 (3.4-5.0) g/dl Globulin 4.0 gm/dL Albumin/Globulin Ratio 0.9 L (1-2) Lipase 59 L (73-393) U/L Urine Color Yellow (Yellow) Urine Appearance Clear (Clear) Urine pH 7.0 (5.0-8.0) Ur Specific [place] 1.015 (1.005-1.030) Urine Protein Negative (Negative) Urine Glucose (UA) Negative (Negative) Urine Ketones 1+ H (Negative) Urine Occult Blood Negative (Negative) Urine Nitrite Negative (Negative) Urine Bilirubin Negative (Negative) Urine Urobilinogen 0.2 (0.2-1.0) Ur Leukocyte Esterase Negative (Negative) Urine RBC 0-5 (0-5) /hpf Urine WBC 0-5 (0-5) /hpf Ur Squamous Epith Cells 0-5 (0-5) /hpf Urine Bacteria Few (FEW) /hpf Urine Mucus Few (FEW) /hpf Meds: Medications Generic Name Dose Route Start Last Admin Trade Name Freq PRN Reason Stop Dose Admin Sodium Chloride 1,000 mls @ 125 mls/hr 01/26/20 08:45 01/26/20 09:00 Normal Saline IV 125 mls/hr ASDIRECTED HUBERT Administration Sodium Chloride 10 ml 01/26/20 08:35 01/26/20 09:51 Saline Flush FLUSH 10 ml ASDIRECTED PRN Administration Keep Vein Open Discontinued Medications Generic Name Dose Route Start Last Admin Trade Name Freq PRN Reason Stop Dose Admin Diatrizoate Meglum/Diatrizoate Sod 90 ml 01/26/20 08:42 01/26/20 09:51 Gastrografin 37% PO 01/26/20 08:43 90 ml ONETIME ONE Administration Hydromorphone HCl 0.5 mg 01/26/20 08:36 01/26/20 09:02 Dilaudid IVPUSH 01/26/20 08:37 0.5 mg ONETIME ONE Administration Iopamidol 100 ml 01/26/20 08:42 01/26/20 09:51 Isovue-300 (61%) IVPUSH 01/26/20 08:43 100 ml ONETIME ONE Administration Ondansetron HCl 4 mg 01/26/20 08:35 01/26/20 09:01 Zofran IVPUSH 01/26/20 08:36 4 mg ONETIME ONE Administration Sodium Chloride 10 ml 01/26/20 08:42 01/26/20 10:14 Saline Flush FLUSH 01/26/20 08:43 10 ml ONETIME ONE Administration Departure - Departure Disposition: Home, Self-Care 01 Clinical Impression: Cellulitis Qualifiers: Site of cellulitis: trunk Site of cellulitis of trunk: abdominal wall Qualified Code(s): L03.311 - Cellulitis of abdominal wall - Discharge Information Prescriptions: Hydrocodone/Acetaminophen [Hydrocodon-Acetaminophen 5-325] 1 - 2 each PO Q6HR PRN #20 tablet PRN Reason: Pain Amoxicillin/Potassium Clav [Augmentin 875-125 Tablet] 1 each PO BID #20 tablet Referrals: PCP,None [Primary Care Provider] - Forms: ED Department Discharge Additional Instructions: Drink plenty of fluids. Take the augmentin 2 times per day for 10 days. Take tylenol or motrin for pain. If that does not help, try the hydrocodone. Hydrocodone can constipate your so take a stool softener with it. Follow up with your surgeon as scheduled. Please return if you have any more problems. Sepsis Event Note - Evaluation Sepsis Screening Result: No Definite Risk - Focused Exam Vital Signs: Vital Signs Temp Pulse Resp BP Pulse Ox 01/26/20 08:05 97.8 F 71 16 141/83 H 98 Date Exam was Performed: 01/26/20 Time Exam was Performed: 08:35 - My Orders Last 24 Hours: My Active Orders 01/26/20 08:35 Sodium Chloride 0.9% [Saline Flush] 10 ml FLUSH ASDIRECTED PRN ED Antiemetic Medication Reflex [OM.PC] Stat Peripheral IV Insertion Adult [OM.PC] Stat 01/26/20 08:36 Peripheral IV Care [RC] . DIRECTED 01/26/20 08:45 Sodium Chloride 0.9% [Normal Saline] 1,000 ml IV ASDIRECTED - Assessment/Plan Last 24 Hours: My Active Orders 01/26/20 08:35 Sodium Chloride 0.9% [Saline Flush] 10 ml FLUSH ASDIRECTED PRN ED Antiemetic Medication Reflex [OM.PC] Stat Peripheral IV Insertion Adult [OM.PC] Stat 01/26/20 08:36 Peripheral IV Care [RC] . DIRECTED 01/26/20 08:45 Sodium Chloride 0.9% [Normal Saline] 1,000 ml IV ASDIRECTED <Billy Chavez - Last Filed: 01/26/20 11:32> Course - Re-Assessments/Exams Free Text/Narrative Re-Assessment/Exam: 01/26/20 11:01 I examined the patient myself and I agree with Leilani's assessment and plan. I ordered an IV NS, zofran 4mg IV, dilaudid 0.5mg IV, CBC, CMP, UA and a CT of your abdomen and pelvis. 01/26/20 11:03 His WBC was elevated at 11.82. His Na was low at 134. His anion gap was a little elevated at 15.7. His UA shows no UTI. His CT shows increased density below the cecum possibly due to postoperative inflammatory change. No well- defined abscess is seen at this time. Complicated fluid is seen within the pelvis either due to resolving hematoma or pus. Large amount of fluid within the right colon most likely relating to ileus. Other findings as noted which are nonacute. 01/26/20 11:[address] Valenzuela and he looked at the CT and there was more inflammation then he would like. He wanted him on some augmentin. Departure - Departure Time of Disposition: 11:30 Condition: Good - Discharge Information *PRESCRIPTION DRUG MONITORING PROGRAM REVIEWED*: Not Applicable *COPY OF PRESCRIPTION DRUG MONITORING REPORT IN PATIENT TRES: Not Applicable Sepsis Event Note - Focused Exam Date Exam was Performed: 01/26/20 Time Exam was Performed: 11:26
[2020-01-26] MEDS: Sodium Chloride 0.9% 10 ML Syringe FLUSH PRN ×2 (09:02→09:51)
--- NOTE | 2020-01-26 10:43 | CT ---
CT abdomen and pelvis Technique: Multiple axial sections were obtained from above the dome of the diaphragm inferiorly through the pubic symphysis. Intravenous and oral contrast was utilized. Comparison: Prior CT abdomen and pelvis study of 01/24/20. Findings: Mild inflammatory change is identified off the tip of the cecum which most likely represents postoperative change. No focal fluid collections are seen at this time to indicate discrete abscess. There is large amount of fluid within the right colon presumably due to ileus. Surgical material is seen from prior appendectomy. There is mild bowel wall thickening within the terminal ileum most likely relating to the adjacent inflammatory postoperative change. Other findings: Visualized lung bases show nothing acute. Liver contains fatty infiltration. Spleen appears within normal limits. Adrenal glands show no nodule. Pancreas is within normal limits. Gallbladder contains no calcified gallstones. Aorta shows no aneurysm. No retroperitoneal adenopathy or mesenteric abnormalities are seen. No pelvic mass or adenopathy is seen. There is a mild amount of complicated fluid within the dependent portions of the pelvis which could represent small amount of liquefying hematoma or pus. Impression: 1. Increased density below the cecum possibly due to postoperative inflammatory change. No well-defined abscess is seen at this time. Complicated fluid is seen within the pelvis either due to resolving hematoma or pus. 2. Large amount of fluid within the right colon most likely relating to ileus. 3. Other findings as noted above which are nonacute. Diagnostic code #3 This report was dictated in [place] Standard Time
== END 2020-01-26 11:40 | disposition home or self-care (01) ==
LOC: JD.ED 07:46
DX: L03.311 Cellulitis of abdominal wall (principal); E66.9 Obesity, unspecified; Z68.29 Body mass index [BMI] 29.0-29.9, adult
CPT/HCPCS: 36415; 74177; 80053; 81001; 83690; 85025; 96361; 96374; 96375; 99284; J1170; J2405; J7030; Q9963; Q9967

== ENCOUNTER 2020-01-31 09:58 | Emergency (ER) | payer MEDICAID ==
[2020-01-31] MEDS ORDERED: Metoclopramide 10 MG/2 ML SDV IVPUSH ONE (10:24)
[2020-01-31] MEDS ORDERED: HYDROmorphone 1 MG/ML Syringe IVPUSH ONE (10:24)
--- NOTE | 2020-01-31 10:28 | EDM.PDOC ---
ED HPI GENERAL MEDICAL PROBLEM - General Chief Complaint: Abdominal Pain Stated Complaint: ABDOMINAL PAIN/POST APPENDECTOMY Time Seen by Provider: 01/31/20 10:22 Source of Information: Reports: Patient History Limitations: Reports: No Limitations - History of Present Illness INITIAL COMMENTS - FREE TEXT/NARRATIVE: 24-year-old male presents to the ED for reevaluation of diffuse abdominal pain particularly periumbilical and right lower quadrant abdominal pain. Of note the patient was seen here on January 24 and diagnosed with appendicitis by CT exam. Clinically had a peritonitis at that time. He was taken to the operating later the following morning by Dr. Schneider for an appendectomy. Apparently returned to the hospital on the and had a CT scan and had a small collection of fluid in the right lower quadrant which is felt to be postoperative in nature. He was started on Augmentin 8 7 5 mg twice daily at that time. He is failing to get better. His appetite is okay he is still having bowel movements but the pain particularly around his umbilicus and right lower quadrant and right vas deferens right testicle is getting worse. Does not have any pressure in the rectum. Are still a bit on the loose side. He ran out of pain medicine 2 days ago and finding that he still needs pain medicine because of the pain in his abdomen. He does not believe he has been running a fever. No nausea or vomiting. Onset: Gradual Onset Date: 01/29/20 (Pain worsening over the last 3 days.) Duration: Day(s):, Constant, Getting Worse, Other (Worsens with movement.) Location: Reports: Abdomen (Umbilical abdominal pain right lower quadrant abdominal pain rating into the vas deferens and down to his right testicle.) Quality: Reports: Ache, Burning Severity: Moderate Improves with: Reports: Rest Worsens with: Reports: Movement Context: Reports: Other Associated Symptoms: Reports: Malaise. Denies: Confusion (Pain is worse with movement or riding in a vehicle.), Chest Pain, Cough, cough w sputum, Fever/ Chills, Headaches, Loss of Appetite, Nausea/Vomiting, Rash, Seizure, Shortness of Breath, Syncope Treatments [employer]: Reports: NSAIDS (Motrin), Other (see below) - Related Data Allergies Allergy/AdvReac Type Severity Reaction Status Date / Time No Known Allergies Allergy Verified 01/31/20 10:10 Home Meds: Home Meds Docusate Sodium [Colace] 100 mg PO Q12HR 15 Days #30 capsule 01/24/20 [Rx] Naproxen [Naprosyn] 250 mg PO BID 01/31/20 [History] Past Medical History - Past Health History Medical/Surgical History: Denies Medical/Surgical History Cardiovascular History: Reports: None Respiratory History: Reports: Other (See Below) Gastrointestinal History: Reports: GERD Endocrine/Metabolic History: Reports: Obesity/BMI 30+ - Past Surgical History HEENT Surgical History: Reports: Oral Surgery GI Surgical History: Reports: Appendectomy - History Comment History Comment: muscle relaxant Social & Family History - Tobacco Use Smoking Status *Q: Never Smoker - Caffeine Use Caffeine Use: Reports: Energy Drinks - Recreational Drug Use Recreational Drug Use: No - Living Situation & Occupation Living situation: Reports: Single Occupation: Employed ED ROS GENERAL - Review of Systems Review Of Systems: See Below Constitutional: Reports: Malaise, Weakness, Fatigue. Denies: Fever, Chills HEENT: Reports: No Symptoms Respiratory: Reports: No Symptoms Cardiovascular: Reports: No Symptoms Endocrine: Reports: Fatigue GI/Abdominal: Reports: Abdominal Pain (Acutely periumbilical.). Denies: Distension, Flatus, Hematemesis, Hematochezia : Reports: Other (Is a pulling sensation along the distribution of the right vas deferens down towards the testicle.) Musculoskeletal: Reports: No Symptoms Skin: Reports: Other (He states the skin glue came off his lower abdominal wound which is suprapubically and the wound has stayed together.) Neurological: Reports: No Symptoms ( It got stuck to his pants) Psychiatric: Reports: No Symptoms Hematologic/Lymphatic: Reports: No Symptoms Immunologic: Reports: No Symptoms ED EXAM, GI/ABD - Physical Exam Exam: See Below Exam Limited By: No Limitations General Appearance: Alert, WD/WN, Moderate Distress, Other (Vital signs show temperature 36.6 heart rate is 108 in sinus at the bedside respiratory of 16 BP 143/87 with O2 sats of 96% on room air) Eyes: Bilateral: Normal Appearance (No scleral icterus or blepharal pallor.) Throat/Mouth: Other Head: Atraumatic, Normocephalic (Slightly dry and coated) Neck: Normal Inspection, Supple, Non-Tender, Full Range of Motion. No: Lymphadenopathy (L), Lymphadenopathy (R) Respiratory/Chest: No Respiratory Distress, Lungs Clear, Normal Breath Sounds, No Accessory Muscle Use, Chest Non-Tender Cardiovascular: No Edema (Sinus tachycardia at the bedside 108/min), No Gallop, No Murmur, No Rub, Tachycardia GI/Abdominal Exam: Distended (Sounds are absent in all 4 quadrants. He distended and slip slightly tympanitic to percussion throughout.), Abnormal Bowel Sounds, Other (There is a faint erythema around the umbilicus particularly superior to the umbilicus and erythema in a linear form inferior to the umbilicus to the pubic symphysis. The area is slightly warm to palpation. His pain is not well localized to the umbilical area. However he also has pain on deep palpation in the right lower quadrant with guarding. Normal amount of postoperative bruising around his port sites.). No: Guarding, Rigid ( concerning for possible abscess development.), Rebound, Tender (Male) Exam: No Hernia Back Exam: Normal Inspection, Full Range of Motion. No: CVA Tenderness (L), CVA Tenderness (R) Extremities: Normal Inspection, Normal Range of Motion, Non-Tender Neurological: Alert, Oriented, CN II-XII Intact, Normal Cognition, Normal Gait Psychiatric: Normal Affect, Normal Mood Skin Exam: Warm, Dry, Intact, Normal Color Course - Vital Signs Last Recorded V/S: Last Vital Signs Temp 36.6 C 01/31/20 10:08 Pulse 108 H 01/31/20 10:08 Resp 16 01/31/20 10:08 BP 143/87 H 01/31/20 10:08 Pulse Ox 96 01/31/20 10:08 - Orders/Labs/Meds Orders: Active Orders 24 hr Category Date Time Status Dextrose 5%-0.9% NaCl [Dextrose 5%-Normal Saline] 1,000 Med 01/31/20 10:30 Active ml IV ASDIRECTED Ertapenem [INVanz] 1 gm Med 01/31/20 12:04 Active Sodium Chloride 0.9% [Normal Saline] 50 ml IV ONETIME metroNIDAZOLE/Normal Saline [Flagyl 500 MG in NS 100 ML Med 01/31/20 11:38 Active ] 500 mg Premix Bag 1 bag IV ONETIME Medication Orders Dextrose/Sodium Chloride (Dextrose 5%-Normal Saline) 1,000 mls @ 999 mls/hr IV ASDIRECTED HUBERT Last Admin: 01/31/20 10:44 Dose: 999 mls/hr Metronidazole 500 mg/ Premix 100 mls @ 100 mls/hr IV ONETIME ONE Stop: 01/31/20 12:37 Last Admin: 01/31/20 11:53 Dose: 100 mls/hr Ertapenem 1 gm/ Sodium (Chloride) 50 mls @ 100 mls/hr IV ONETIME ONE Stop: 01/31/20 12:33 Labs: Laboratory Tests 01/31/20 01/31/20 Range/Units 10:28 10:28 WBC 17.16 H (4.23-9.07) K/mm3 RBC 4.42 L (4.63-6.08) M/mm3 Hgb 13.9 (13.7-17.5) gm/dl Hct 40.5 (40.1-51.0) % MCV 91.6 (79.0-92.2) fl MCH 31.4 (25.7-32.2) pg MCHC 34.3 (32.2-35.5) g/dl RDW Std Deviation 39.7 (35.1-43.9) fL Plt Count 378 H D (163-337) K/mm3 MPV 8.8 L (9.4-12.3) fl Neutrophils % (Manual) 77 H (40-60) % Band Neutrophils % 0 (0-10) % Lymphocytes % (Manual) 15 L (20-40) % Atypical Lymphs % 0 % Monocytes % (Manual) 7 (2-10) % Eosinophils % (Manual) 1 (0.8-7.0) % Basophils % (Manual) 0 L (0.2-1.2) Platelet Estimate Adequate Anisocytosis 1+ slight RBC Morph Comment Not Reportable Sodium 138 (136-145) mEq/L Potassium 3.7 (3.5-5.1) mEq/L Chloride 101 (98-107) mEq/L Carbon Dioxide 26 (21-32) mEq/L Anion Gap 14.7 (5-15) BUN 9 (7-18) mg/dL Creatinine 1.0 (0.7-1.3) mg/dL Est Cr Clr Drug Dosing 136.14 mL/min Estimated GFR (MDRD) > 60 (>60) mL/min BUN/Creatinine Ratio 9.0 L (14-18) Glucose 101 (74-106) mg/dL Calcium 9.0 (8.5-10.1) mg/dL Magnesium 1.9 (1.8-2.4) mg/dl Total Bilirubin 0.7 (0.2-1.0) mg/dL AST 29 (15-37) U/L ALT 65 H (16-63) U/L Alkaline Phosphatase 116 (46-116) U/L C-Reactive Protein 12.9 H* (<1.0) mg/dL Total Protein 7.5 (6.4-8.2) g/dl Albumin 3.3 L (3.4-5.0) g/dl Globulin 4.2 gm/dL Albumin/Globulin Ratio 0.8 L (1-2) Lipase 81 (73-393) U/L Meds: Medications Generic Name Dose Route Start Last Admin Trade Name Tulioq PRN Reason Stop Dose Admin Dextrose/Sodium Chloride 1,000 mls @ 999 mls/hr 01/31/20 10:30 01/31/20 10:44 Dextrose 5%-Normal Saline IV 999 mls/hr ASDIRECTED HUBERT Administration Metronidazole 500 mg/ Premix 100 mls @ 100 mls/hr 01/31/20 11:38 01/31/20 11: 53 IV 01/31/20 12:37 100 mls/hr ONETIME ONE Administration Ertapenem 1 gm/ Sodium 50 mls @ 100 mls/hr 01/31/20 12:04 Chloride IV 01/31/20 12:33 ONETIME ONE Discontinued Medications Generic Name Dose Route Start Last Admin Trade Name Trevor PRN Reason Stop Dose Admin Ertapenem 1 gm 01/31/20 11:55 Invanz IVPUSH 01/31/20 11:56 ONETIME ONE Hydromorphone HCl 1 mg 01/31/20 10:24 01/31/20 10:44 Dilaudid IVPUSH 01/31/20 10:25 1 mg ONETIME ONE Administration Iopamidol 100 ml 01/31/20 10:31 01/31/20 10:41 Isovue-300 (61%) IVPUSH 01/31/20 10:32 100 ml ONETIME ONE Administration Metoclopramide HCl 10 mg 01/31/20 10:24 01/31/20 10:44 Reglan IVPUSH 01/31/20 10:25 10 mg ONETIME ONE Administration Sodium Chloride 10 ml 01/31/20 10:31 01/31/20 10:41 Saline Flush FLUSH 01/31/20 10:32 10 ml ONETIME ONE Administration - Radiology Interpretation Free Text/Narrative:: 24-year-old male who is now 1 week postop appendectomy done laparoscopically by Dr. Valenzuela--presents to the hospital with increasing pain periumbilically and right lower quadrant of the abdomen over the last 3 to 4 days. He is eating and his bowels are working. He states the pain however is quite severe periumbilically particular with movement deep breathing or even riding in a vehicle. Similarly he still has pain in his right lower quadrant of his abdomen. Not aware of any fever perhaps a few chills. Has pain along the distribution of the right vas deferens down towards his right testicle with movement as well. Frannie he is guarding in the right lower quadrant and is very tender around the umbilicus on exam. He was seen 5 days ago or 2 days postop with similar complaints and was placed on Augmentin tablets 8 7 5 mg 125 mg twice daily which he is still taking. He is out of pain medicine for the last 2 days and feels he cannot go without it. Atypical presentation as he should be getting markedly better 1 week postop lap and ectomy. Routine labs will be performed. IV will be D5 normal saline at open. Given Dilaudid 1 mg IV with Reglan 10 mg IV for pain relief. Of repeat CT of the abdomen with IV contrast only. This will be CT abdomen and pelvis. - Re-Assessments/Exams Free Text/Narrative Re-Assessment/Exam: 01/31/20 : CT of the abdomen pelvis has been performed with IV contrast. Liver shows fatty infiltration without focal abnormality. Spleen appears within normal limits. Kidneys show symmetric contrast enhancement with no hydronephrosis or mass. Aorta shows no aneurysm adrenal glands show no nodule. Pancreas is within normal limits. Gallbladder contains no calcified gallstones. There is no retroperitoneal adenopathy identified. Small amount of fluid or pus is noted within the dependent pelvis no bowel dilatation is seen. There is a low-density abnormality seen distal to the cecum measuring 8.6 x 6.5 cm. Soft tissue density seen in this area on prior study but findings now felt to have changed to an abscess formation. 01/31/20 11:56 Hematology reveals a white count of 17.16 with a left shift of 77 % neutrophils. Hemoglobin is 13.9 with hematocrit of 40.5. Platelet count is 378,000 slightly elevated. Sodium 138 with a potassium of 3.7. Chloride 101 with a bicarb of 26. Anion gap is 14.7. BUN is 9 with a creatinine of 1.0. GFR remains greater than 60. Glucose 101 with a calcium of 9.0. Magnesium is 1.9 bilirubin is 0.7 AST is 29 ALT minimally elevated at 65 alk phos normal at 116. C-reactive protein elevated at 12.9. Total protein is 7.5 with an albumin fraction of 3.3. Lipase is 81 I was able to speak through the 1 call nurse at for definitive and Dr. Love from the department of radiology who we can drain this percutaneously. I spoke through a ER physician as well who is excepted care. The plan will likely be to have him admitted to hospital under hospitalist care or surgical care once he reaches the hospital. This can be performed after he is surgically drained. In the meantime he will receive Flagyl 500 mg IV and Invanz 1 g IV. 01/31/20 12:17: Patient will be transferred to [facility] per ground ambulance. Other fluids will be D5LR with 20 mill equivalents of KCl per liter to run at 150 mils per hour. Departure - Departure Time of Disposition: 12:25 Disposition: DC/Tfer to Acute Hospital 02 Condition: Fair Clinical Impression: Postprocedural intraabdominal abscess - Discharge Information *PRESCRIPTION DRUG MONITORING PROGRAM REVIEWED*: Not Applicable *COPY OF PRESCRIPTION DRUG MONITORING REPORT IN PATIENT TRES: Not Applicable Referrals: PCP,None [Primary Care Provider] - Forms: ED Department Discharge Additional Instructions: [facility] transferred to [facility] for interventional radiology potential percutaneous drainage of periappendiceal abscess as that has developed 1 week post appendectomy. Patient is to be transferred to the emergency department where further directions will be obtained from ER physician and . Sepsis Event Note - Evaluation Sepsis Screening Result: No Definite Risk - Focused Exam Vital Signs: Vital Signs Temp Pulse Resp BP Pulse Ox 01/31/20 10:08 36.6 C 108 H 16 143/87 H 96 Date Exam was Performed: 01/31/20 Time Exam was Performed: 12:17 - My Orders Last 24 Hours: My Active Orders 01/31/20 10:30 Dextrose 5%-0.9% NaCl [Dextrose 5%-Normal Saline] 1,000 ml IV ASDIRECTED 01/31/20 11:38 metroNIDAZOLE/Normal Saline [Flagyl 500 MG in NS 100 ML] 500 mg Premix Bag 1 bag IV ONETIME 01/31/20 12:04 Ertapenem [INVanz] 1 gm Sodium Chloride 0.9% [Normal Saline] 50 ml IV ONETIME - Assessment/Plan Last 24 Hours: My Active Orders 01/31/20 10:30 Dextrose 5%-0.9% NaCl [Dextrose 5%-Normal Saline] 1,000 ml IV ASDIRECTED 01/31/20 11:38 metroNIDAZOLE/Normal Saline [Flagyl 500 MG in NS 100 ML] 500 mg Premix Bag 1 bag IV ONETIME 01/31/20 12:04 Ertapenem [INVanz] 1 gm Sodium Chloride 0.9% [Normal Saline] 50 ml IV ONETIME
[2020-01-31] MEDS ORDERED: Dextrose 5%-0.9% NaCl 1,000 ML IV SCH (10:30)
[2020-01-31] MEDS ORDERED: Sodium Chloride 0.9% 10 ML Syringe FLUSH ONE (10:31)
[2020-01-31] MEDS ORDERED: Iopamidol 612 MG/ML 100 ML Bottle IVPUSH ONE (10:31)
--- NOTE | 2020-01-31 11:14 | CT ---
CT abdomen and pelvis Technique: Multiple axial sections were obtained from above the dome of the diaphragm inferiorly through the pubic symphysis. Intravenous contrast was utilized. No oral contrast has been given. Comparison: Prior CT abdomen and pelvis study of 01/26/20. Findings: Low density abnormality is seen to the cecum measuring 8.6 cm x 6.5 cm. Soft tissue density seen in this area on prior study but findings now felt to have changed to an abscess. Other findings: Visualized lung bases show nothing acute. Liver shows fatty infiltration without focal abnormality. Spleen appears within normal limits. Kidneys show symmetric contrast enhancement with no hydronephrosis or mass. Aorta shows no aneurysm. Adrenal glands show no nodule. Pancreas is within normal limits. Gallbladder contains no calcified gallstones. No retroperitoneal adenopathy is seen. Small amount of fluid or pus is noted within the dependent pelvis. No bowel dilatation is seen. Impression: 1. Findings felt compatible of developing abscess inferior to the cecum with measurements as noted above. 2. Small amount of fluid or pus within the dependent pelvis. 3. Fatty infiltration within the liver. No additional abnormality is seen. Diagnostic code #5 This report was dictated in [place] Standard Time
[2020-01-31] MEDS ORDERED: metroNIDAZOLE/Normal Saline 500 MG in Premix Bag 1 BAG IV ONE (11:38)
[2020-01-31] MEDS ORDERED: Ertapenem 1 GM Vial IVPUSH ONE (11:55)
[2020-01-31] MEDS ORDERED: Ertapenem 1 GM in Sodium Chloride 0.9% 50 ML IV ONE (12:04)
[2020-01-31] MEDS ORDERED: Potassium Chloride 10 MEQ in Premix Bag 1 BAG IV ONE (12:19)
[2020-01-31] MEDS ORDERED: Dextrose 5%-Lactated Ringers 1,000 ML IV SCH (12:30)
[2020-01-31] MEDS ORDERED: Dextrose 5%-Lact Ringers w/KCl 1,000 ML IV SCH (12:30)
== END 2020-01-31 13:00 ==
LOC: JD.ED 09:58
DX: T81.49XA Infection following a procedure, other surgical site, initial encounter (principal); E66.9 Obesity, unspecified; Z90.49 Acquired absence of other specified parts of digestive tract; Z68.30 Body mass index [BMI] 30.0-30.9, adult
CPT/HCPCS: 36415; 74177; 80053; 83690; 83735; 85007; 85027; 86140; 96361; 96365; 96368; 96375; 99285; J1170; J1335; J2765; J3480; J3490; J7042; J7050; Q9967

== ENCOUNTER 2020-02-08 19:38 | Emergency (ER) | payer MEDICAID ==
--- NOTE | 2020-02-08 20:37 | EDM.PDOC ---
ED HPI GENERAL MEDICAL PROBLEM - General Chief Complaint: Wound Recheck Stated Complaint: SIDE PAIN POST OP Time Seen by Provider: 02/08/20 20:14 Source of Information: Reports: Patient History Limitations: Reports: No Limitations - History of Present Illness INITIAL COMMENTS - FREE TEXT/NARRATIVE: The patient presents with abdominal pain. He had his appendix out January 24 and a few days later he came back with more pain. A CT was done and he had some fluid in his pelvis. He was put on antibiotics and then came back a few days later and he was found to have an abscess. He was sent to [facility] and had it drained. He has a ILYA drain in now. He still has some pain and he is out of his antibiotics. He is not sure what they are. Onset: Gradual Duration: Week(s): Location: Reports: Abdomen Quality: Reports: Sharp Severity: Moderate Improves with: Reports: None Worsens with: Reports: None Associated Symptoms: Denies: Chest Pain, Cough, Fever/Chills, Headaches, Nausea/ Vomiting, Shortness of Breath Right Abdomen Pain Score (Numeric/FACES): 5 - Related Data Allergies Allergy/AdvReac Type Severity Reaction Status Date / Time No Known Allergies Allergy Verified 02/08/20 20:13 Home Meds: Home Meds Hydrocodone/Acetaminophen [Hydrocodon-Acetaminophen 5-325] 1 - 2 each PO Q6HR PRN #20 tablet 02/08/20 [Rx] metroNIDAZOLE [Flagyl] 500 mg PO Q8H #15 tab 02/08/20 [Rx] Past Medical History - Past Health History Medical/Surgical History: Denies Medical/Surgical History Cardiovascular History: Reports: None Respiratory History: Reports: Other (See Below) Gastrointestinal History: Reports: GERD Endocrine/Metabolic History: Reports: Obesity/BMI 30+ - Past Surgical History HEENT Surgical History: Reports: Oral Surgery GI Surgical History: Reports: Appendectomy - History Comment History Comment: muscle relaxant Social & Family History - Tobacco Use Smoking Status *Q: Never Smoker - Caffeine Use Caffeine Use: Reports: Coffee, Tea - Recreational Drug Use Recreational Drug Use: No - Living Situation & Occupation Living situation: Reports: Single Occupation: Employed ED ROS GENERAL - Review of Systems Review Of Systems: See Below Constitutional: Reports: No Symptoms HEENT: Reports: No Symptoms Respiratory: Reports: No Symptoms Cardiovascular: Reports: No Symptoms Endocrine: Reports: No Symptoms GI/Abdominal: Reports: Abdominal Pain : Reports: No Symptoms Musculoskeletal: Reports: No Symptoms ED EXAM, GENERAL - Physical Exam Exam: See Below Exam Limited By: No Limitations General Appearance: Alert, No Apparent Distress Ears: Normal External Exam Nose: Normal Inspection Head: Atraumatic, Normocephalic Neck: Normal Inspection Respiratory/Chest: No Respiratory Distress GI/Abdominal: Soft, No Organomegaly, No Mass, Tender (Mild tenderness to the lower abdomen) Course - Vital Signs Last Recorded V/S: Last Vital Signs Temp 98.5 F 02/08/20 20:10 Pulse 105 H 02/08/20 20:10 Resp 16 02/08/20 20:10 BP 130/89 02/08/20 20:10 Pulse Ox 97 02/08/20 20:10 Departure - Departure Time of Disposition: 20:40 Disposition: Home, Self-Care 01 Condition: Good Clinical Impression: Postprocedural intraabdominal abscess - Discharge Information *PRESCRIPTION DRUG MONITORING PROGRAM REVIEWED*: No *COPY OF PRESCRIPTION DRUG MONITORING REPORT IN PATIENT TRES: No Prescriptions: Hydrocodone/Acetaminophen [Hydrocodon-Acetaminophen 5-325] 1 - 2 each PO Q6HR PRN #20 tablet PRN Reason: Pain metroNIDAZOLE [Flagyl] 500 mg PO Q8H #15 tab Referrals: Bal Sifuentes MD [Primary Care Provider] - Additional Instructions: Take your medication as prescribed. Follow up with your doctors as scheduled. Please return if you are worse. Sepsis Event Note - Evaluation Sepsis Screening Result: No Definite Risk - Focused Exam Vital Signs: Vital Signs Temp Pulse Resp BP Pulse Ox 02/08/20 20:10 98.5 F 105 H 16 130/89 97 Date Exam was Performed: 02/08/20 Time Exam was Performed: 20:32
== END 2020-02-08 20:50 | disposition home or self-care (01) ==
LOC: JD.ED 19:38
DX: T81.43XA Infection following a procedure, organ and space surgical site, initial encounter (principal); E66.9 Obesity, unspecified; Z68.28 Body mass index [BMI] 28.0-28.9, adult
CPT/HCPCS: 99283

== ENCOUNTER 2021-04-07 16:02 | Emergency (ER) | payer MEDICAID, OTHER, SELFPAY ==
[2021-04-07] MEDS ORDERED: Ibuprofen 800 MG Tab PO ONE (16:45)
--- NOTE | 2021-04-07 16:45 | EDM.PDOC ---
ED HPI GENERAL MEDICAL PROBLEM - General Chief Complaint: Lower Extremity Injury/Pain Stated Complaint: RT BIG TOENAIL COMPLAINT Time Seen by Provider: 04/07/21 16:17 Source of Information: Reports: Patient History Limitations: Reports: No Limitations - History of Present Illness INITIAL COMMENTS - FREE TEXT/NARRATIVE: 26-year-old male presents the emergency department today with complaints of injury of his right great toe. He states that just prior to the arrival he was ambulating up a flight of stairs when he tripped and his right foot slid forward and slid under a lip of wood on deck stairs. He states it caught his right great toenail and pulled it back slightly on the right medial portion of the nail. He states his right great toe also sustained injury. He denies taking any Tylenol or ibuprofen prior to arrival. Treatments PYROTECHNIC MIXER: Reports: Other (see below) Other Treatments PYROTECHNIC MIXER: none Right Toe-Hailux Pain Score (Numeric/FACES): 2 - Related Data Allergies Allergy/AdvReac Type Severity Reaction Status Date / Time No Known Allergies Allergy Verified 02/08/20 20:13 Home Meds: Home Meds . [No Known Home Meds] 04/07/21 [History] Past Medical History - Past Health History Medical/Surgical History: Denies Medical/Surgical History Cardiovascular History: Reports: None Respiratory History: Reports: Other (See Below) Gastrointestinal History: Reports: GERD Endocrine/Metabolic History: Reports: Obesity/BMI 30+ - Past Surgical History HEENT Surgical History: Reports: Oral Surgery GI Surgical History: Reports: Appendectomy Other GI Surgeries/Procedures: septic appy - History Comment History Comment: muscle relaxant Social & Family History - Tobacco Use Tobacco Use Status *Q: Never Tobacco User - Caffeine Use Caffeine Use: Reports: Coffee, Energy Drinks, Soda, Tea - Recreational Drug Use Recreational Drug Use: No - Living Situation & Occupation Living situation: Reports: Single Occupation: Employed Review of Systems - Review of Systems Review Of Systems: Comprehensive ROS is negative, except as noted in HPI. ED EXAM, GENERAL - Physical Exam Exam: See Below Exam Limited By: No Limitations General Appearance: Alert, WD/WN, Mild Distress Ears: Normal External Exam, Hearing Grossly Normal Nose: Normal Inspection Throat/Mouth: Normal Inspection, Normal Lips, Normal Voice, No Airway Compromise Head: Atraumatic Neck: Normal Inspection, Supple Respiratory/Chest: No Respiratory Distress, No Accessory Muscle Use Cardiovascular: Normal Peripheral Pulses, Regular Rate, Rhythm GI/Abdominal: No Distention (Male) Exam: Deferred Rectal (Males) Exam: Deferred Back Exam: Normal Inspection Extremities: Normal Capillary Refill. No: Normal Inspection (Swelling and redness noted to right great toe. Small amount of bloody drainage noted to right medial aspect of great toe nailbed), Normal Range of Motion (Decreased range of motion noted to right great toe), Non-Tender (Tenderness noted to right great toe) Neurological: Alert, Oriented, Normal Cognition Psychiatric: Normal Affect, Normal Mood Skin Exam: Warm, Dry, Intact, Normal Color, No Rash Lymphatic: No Adenopathy Course - Vital Signs Text/Narrative:: Patient presents with injury to his right great toe. States that he was walking up some stairs and his foot slipped and slid under the lip of a board. States that right medial aspect of his great toenail did pull back however it is in place at the time of assessment. There is some bloody drainage noted to the right medial aspect of nail bed however toenail is in place. There is also bruising noted under the toenail. Patient complains of pain to right great toe and is unable to bend the toe. I have ordered an x-ray of the right great toe Last Recorded V/S: Last Vital Signs Temp 98.6 F 04/07/21 16:18 Pulse 79 04/07/21 16:18 Resp 20 04/07/21 16:18 BP 133/68 04/07/21 16:18 Pulse Ox 97 04/07/21 16:18 - Orders/Labs/Meds Orders: Active Orders 24 hr Category Date Time Status Toes Great Toe Rt T5 [CR] Stat Exams 04/07/21 16:39 Ordered Meds: Medications Discontinued Medications Generic Name Dose Route Start Last Admin Trade Name Freq PRN Reason Stop Dose Admin Ibuprofen 800 mg 04/07/21 16:45 04/07/21 16:50 Ibuprofen 800 Mg Tab PO 04/07/21 16:46 800 mg ONETIME ONE Administration - Re-Assessments/Exams Free Text/Narrative Re-Assessment/Exam: 04/07/21 17:28 X-ray of the right great toe was reviewed by myself and Dr. Hardy and there is no acute fracture noted. Patient will be discharged home with recommendations that he soak the toe 3 times daily and Epson salt baths. Departure - Departure Time of Disposition: 17:31 Disposition: Home, Self-Care 01 Condition: Good Clinical Impression: Injury of toe on right foot Qualifiers: Encounter type: initial encounter Qualified Code(s): S99.921A - Unspecified injury of right foot, initial encounter - Discharge Information Instructions: Pain Medicine Instructions, [id number] Referrals: PCP,None [Primary Care Provider] - Forms: ED Department Discharge Additional Instructions: You were seen in the emergency department today after injuring your right great toe. Your nail bed does appear to be partially pulled back however it is in place. It is not recommended to remove the toenail as the risk for infection are greater than the benefit of removing the nail. The nail will likely fall off over time. Strongly recommend that you use Epson salt soaks and is hot of water as you can stand up to 3 times a day. If at all possible keep the toe open to air. Should you notice signs of infection such as increased redness, warmth, swelling or pus, you will likely need to follow-up with your primary care physician. You can take ibuprofen 800 mg every 6-8 hours as needed for discomfort. You may also try taking Tylenol 650 mg every 4-6 hours as needed for discomfort. Should your condition worsen or change do not hesitate returning to the emergency department. Sepsis Event Note (ED) - Evaluation Sepsis Screening Result: No Definite Risk - Focused Exam Vital Signs: Vital Signs Temp Pulse Resp BP Pulse Ox 04/07/21 16:18 98.6 F 79 20 133/68 97 - My Orders Last 24 Hours: My Active Orders 04/07/21 16:39 Toes Great Toe Rt T5 [CR] Stat - Assessment/Plan Last 24 Hours: My Active Orders 04/07/21 16:39 Toes Great Toe Rt T5 [CR] Stat
--- NOTE | 2021-04-07 17:53 | CR ---
Right first toe: 4 views of the right first toe were obtained. Comparison: Prior right foot study of 09/16/14. Findings: Deformity from old fracture is seen within the base of the distal phalanx of the first toe. Well-corticated bony densities are also noted in 2 locations within the base of the distal phalanx compatible with old injury. On the lateral view there is slight lucency within the distal aspect of the proximal phalanx of the first toe which could represent a small acute fracture line. Impression: 1. Findings believed to represent old fractures as described above. 2. Possible acute fracture within the distal aspect of the proximal phalanx of the first toe. Follow-up study in 10-14 days would confirm if clinically needed. Diagnostic code #3
== END 2021-04-07 17:48 | disposition home or self-care (01) ==
LOC: JD.ED 16:02
DX: S99.921A Unspecified injury of right foot, initial encounter (principal); E66.9 Obesity, unspecified; Z68.30 Body mass index [BMI] 30.0-30.9, adult; W23.0XXA Caught, crushed, jammed, or pinched between moving objects, initial encounter
CPT/HCPCS: 73660; 99283; A9270

== ENCOUNTER 2021-04-23 13:36 | Emergency (ER) | payer MEDICAID ==
[2021-04-23] MEDS ORDERED: Diphtheria,Pertussis(Acell),Tetanus Vaccine 0.5 ML Syringe IM ONE (13:58)
--- NOTE | 2021-04-23 14:04 | EDM.PDOC ---
ED HPI GENERAL MEDICAL PROBLEM - General Chief Complaint: Upper Extremity Injury/Pain Stated Complaint: R HAND PINKY FINGER LAC Time Seen by Provider: 04/23/21 13:40 Source of Information: Reports: Patient History Limitations: Reports: No Limitations - History of Present Illness INITIAL COMMENTS - FREE TEXT/NARRATIVE: 26-year-old male presents the emergency department today with complaints of a laceration to his right pinky that occurred last evening around 5 PM. Patient also has a abrasion noted to the palm of his left hand that occurred 3 days ago. Patient cleansed the laceration however he closed it up using superglue. He presents today questioning whether or not he should have stitches. Abrasion to left palm is approximately the size of an Oreo cookie. There is no erythema, edema or purulent drainage noted from the wound. Patient has been using Epson salt soaks a few times a day. States his tetanus is not up-to-date and he is requesting to have this updated today. Right Finger-Little Pain Score (Numeric/FACES): 3 - Related Data Allergies Allergy/AdvReac Type Severity Reaction Status Date / Time No Known Allergies Allergy Verified 02/08/20 20:13 Home Meds: Home Meds . [No Known Home Meds] 04/07/21 [History] Past Medical History - Past Health History Medical/Surgical History: Denies Medical/Surgical History Cardiovascular History: Reports: None Respiratory History: Reports: Other (See Below) Gastrointestinal History: Reports: GERD Endocrine/Metabolic History: Reports: Obesity/BMI 30+ - Past Surgical History HEENT Surgical History: Reports: Oral Surgery GI Surgical History: Reports: Appendectomy Other GI Surgeries/Procedures: septic appy - History Comment History Comment: muscle relaxant Social & Family History - Tobacco Use Tobacco Use Status *Q: Never Tobacco User - Caffeine Use Caffeine Use: Reports: Coffee, Energy Drinks, Soda, Tea - Living Situation & Occupation Living situation: Reports: Single Occupation: Employed Review of Systems - Review of Systems Review Of Systems: Comprehensive ROS is negative, except as noted in HPI. ED EXAM, GENERAL - Physical Exam Exam: See Below Exam Limited By: No Limitations General Appearance: Alert, WD/WN, No Apparent Distress Ears: Normal External Exam, Hearing Grossly Normal Nose: Normal Inspection Throat/Mouth: Normal Inspection, Normal Lips, Normal Voice, No Airway Compromise Head: Atraumatic Neck: Normal Inspection, Supple Respiratory/Chest: No Respiratory Distress, No Accessory Muscle Use Cardiovascular: Normal Peripheral Pulses, Regular Rate, Rhythm GI/Abdominal: No Distention (Male) Exam: Deferred Rectal (Males) Exam: Deferred Back Exam: Normal Inspection Extremities: Normal Inspection, Normal Range of Motion, Other (Oreo sized superficial abrasion noted to the left palm; laceration noted to the knuckle of the right fifth digit however superglue is on the wound.) Neurological: Alert, Oriented, Normal Cognition Psychiatric: Normal Affect, Normal Mood Skin Exam: Warm, Dry, Normal Color, No Rash. No: Intact (Oreo sized superficial abrasion noted to the left palm; laceration noted to the knuckle of the right fifth digit however superglue is on the wound.) Lymphatic: No Adenopathy Course - Vital Signs Text/Narrative:: Patient presents with laceration on the dorsal aspect of his left hand across his fifth digit on the knuckle. Patient states this occurred last evening around 5 PM and he then cleaned the wound immediately after and closed it up with superglue. At this time there is no bleeding noted and it does not appear infected. I did notify him that there was really nothing further that we could do to treat this injury. Patient is questioning whether or not the abrasion to his left palm is infected. He has been cleaning it and then also soaking it a few times daily and Epson salts. There is no erythema or edema noted there is no purulent drainage. Granulation tissue is forming. I have ordered for nursing staff to clean the left palm abrasion and put a dressing on. I have ordered for the patient to receive his tetanus booster. He will then be discharged home. Last Recorded V/S: Last Vital Signs Temp 97.5 F 04/23/21 13:50 Pulse 64 04/23/21 13:50 Resp 20 04/23/21 13:50 BP 134/72 04/23/21 13:50 Pulse Ox 97 04/23/21 13:50 - Orders/Labs/Meds Orders: Active Orders 24 hr Category Date Time Status Vaccines to be Administered [RC] PER UNIT ROUTINE Care 04/23/21 13:58 Ordered Diphth,Pertuss(Acell),Tet Vac [Boostrix] Med 04/23/21 13:58 Once 0.5 ml IM .ONCE ONE Departure - Departure Time of Disposition: 14:07 Disposition: Home, Self-Care 01 Condition: Good Clinical Impression: Laceration Abrasion hand Qualifiers: Encounter type: initial encounter Laterality: left Qualified Code(s): S60.512A - Abrasion of left hand, initial encounter - Discharge Information Instructions: Laceration Care, Adult, [id number], Abrasion, [id number] Referrals: PCP,None [Primary Care Provider] - Additional Instructions: You were seen in the emergency department today with an abrasion to your left hand and a laceration to your right pinky finger. The abrasion to your left hand does not appear infected. Continue soaking it in the Epson salt up to 3 times daily. Pat dry and then apply bacitracin and a bandage to keep it clean. Do not pick at the superglue on your laceration. Allow it to fall off with time. Be sure to wash the area twice daily with mild soap and water such as Dial soap or Reji's baby shampoo. Pat the area dry. Watch for signs and symptoms of infection such as increased redness, warmth, swelling or pus. Your tetanus shot was updated today. Please keep this in your records somewhere. Sepsis Event Note (ED) - Evaluation Sepsis Screening Result: No Definite Risk - Focused Exam Vital Signs: Vital Signs Temp Pulse Resp BP Pulse Ox 04/23/21 13:50 97.5 F 64 20 134/72 97 - My Orders Last 24 Hours: My Active Orders 04/23/21 13:58 Vaccines to be Administered [RC] PER UNIT ROUTINE Diphth,Pertuss(Acell),Tet Vac [Boostrix] 0.5 ml IM .ONCE ONE - Assessment/Plan Last 24 Hours: My Active Orders 04/23/21 13:58 Vaccines to be Administered [RC] PER UNIT ROUTINE Diphth,Pertuss(Acell),Tet Vac [Boostrix] 0.5 ml IM .ONCE ONE
== END 2021-04-23 14:52 | disposition home or self-care (01) ==
LOC: JD.ED 13:36
DX: S61.216A Laceration without foreign body of right little finger without damage to nail, initial encounter (principal); S60.512A Abrasion of left hand, initial encounter; E66.9 Obesity, unspecified; Z68.30 Body mass index [BMI] 30.0-30.9, adult; Z23 Encounter for immunization; W26.8XXA Contact with other sharp object(s), not elsewhere classified, initial encounter
CPT/HCPCS: 90471; 90715; 99282

== ENCOUNTER 2021-04-24 20:46 | Emergency (ER) | payer MEDICAID ==
--- NOTE | 2021-04-24 21:17 | EDM.PDOC ---
ED HPI GENERAL MEDICAL PROBLEM - General Chief Complaint: Upper Extremity Injury/Pain Stated Complaint: lac to hand Time Seen by Provider: 04/24/21 20:57 Source of Information: Reports: Patient History Limitations: Reports: No Limitations - History of Present Illness INITIAL COMMENTS - FREE TEXT/NARRATIVE: Mr. Szymanski is a very pleasant 26-year-old gentleman who, medical records indicate, was seen in this ED this yesterday, 04/23/2021, after he suffered a laceration to his right 5th finger the evening of the . He reported that he had cut it when something that he was taking off of a shelf broke. He closed the wound on his own using superglue. When seen in the ED, it was too late to suture the wound. He was given a tetanus shot before being discharged home with the advice to leave the glue alone and not pick at it. The patient now returns to the ED stating that the superglue fell off while he was soaking his finger in Epson salts earlier today. The wound briefly bled, although has subsequently stopped on its own. No recent fever. Here in the ED tonight, the patient is found to be hemodynamically stable, afebrile, saturating 97% on room air. Prior to the of 04/22/2021, the patient denies having a recent fever, chills, sore throat, ear pain, nasal or sinus congestion, cough, dyspnea, chest pain, palpitations, nausea, vomiting, constipation, diarrhea, abdominal pain, urinary symptoms, recent weight gain or weight loss, recent bloody bowel movements or black bowel movements, recent joint aches, headaches, or rashes. The patient does not have a PCP. Right Finger-Little Pain Score (Numeric/FACES): 4 - Related Data Allergies Allergy/AdvReac Type Severity Reaction Status Date / Time No Known Allergies Allergy Verified 02/08/20 20:13 Home Meds: Home Meds . [No Known Home Meds] 04/07/21 [History] Past Medical History Endocrine/Metabolic History: Reports: Obesity/BMI 30+ - Past Surgical History HEENT Surgical History: Reports: Oral Surgery (dental extractions) GI Surgical History: Reports: Appendectomy Social & Family History - Tobacco Use Tobacco Use Status *Q: Former Tobacco User Used Tobacco, but Quit: Yes Month/Year Tobacco Last Used: 2 - Caffeine Use Caffeine Use: Reports: Coffee - Recreational Drug Use Recreational Drug Use: No - Living Situation & Occupation Living situation: Reports: Single Occupation: Employed Review of Systems - Review of Systems Review Of Systems: Comprehensive ROS is negative, except as noted in HPI. ED EXAM, GENERAL - Physical Exam Exam: See Below Exam Limited By: No Limitations General Appearance: Alert, WD/WN, No Apparent Distress Extremities: Other (There is an approximately 1.5 cm fairly linear laceration over the dorsal lateral aspect of the patient's right fifth finger, crossing the PIP. No associated swelling or erythema. No apparent tendinous injury. Neurovascular status of the finger is intact.) Course - Vital Signs Last Recorded V/S: Last Vital Signs Temp 36.6 C 04/24/21 21:06 Pulse 90 04/24/21 21:06 Resp 20 04/24/21 21:06 BP 127/80 04/24/21 21:06 Pulse Ox - Re-Assessments/Exams Free Text/Narrative Re-Assessment/Exam: 04/24/21 21:17 As above, the patient lacerated the dorso-lateral aspect of his right 5th finger Thursday night, then applied superglue to the wound. He was seen in this ED yesterday afternoon, at which time he was given a tetanus vaccination, but no other treatment was felt necessary. He now returns to the ED, stating that the superglue fell off when he was soaking the finger with Epson salts earlier today. He states that the wound was bleeding earlier, although it has since spontaneously stopped. On examination, the wound does not appear to be very deep, and I see no signs of infection. I had him wash his hands with soap and water, then applied a Band-Aid over the wound, then place his finger into a volar splint, in order to keep his finger straight. I will refer him to the clinic, in case he develops any signs concerning for an infection. The patient requested a note to be off work for the past few days, and through tomorrow: I can write a note for him to be off tomorrow. Departure - Departure Time of Disposition: 21:21 Disposition: Home, Self-Care 01 Condition: Good Clinical Impression: Laceration of right little finger - Discharge Information *PRESCRIPTION DRUG MONITORING PROGRAM REVIEWED*: Not Applicable *COPY OF PRESCRIPTION DRUG MONITORING REPORT IN PATIENT TRES: Not Applicable Instructions: Laceration Care, Adult, [id number] Referrals: PCP,None [Primary Care Provider] - Apple Ortega NP [Nurse Practitioner] - Forms: ED Department Discharge, ED Return to Work/School Form Additional Instructions: You were seen in the emergency room after the superglue that you had applied to a cup to your right finger fell off, causing the finger to bleed. On examination, the wound does not appear to be that deep, there is no sign of an infection. After your hands were cleaned, a Band-Aid was applied to the wound, followed by a splint to help keep your finger straight. We recommend that you keep the wound clean with ordinary soap and water when you bathe. Pat dry, then apply a fresh bandage, followed by the splint. If you keep the wound clean, it should not get infected, however, if there are any concerns of infection, please follow-up with Apple Ortgea NP, or one of the other providers in the clinic. A note to be off work tomorrow was provided. If any other problems, please do not hesitate to return to the ER. Sepsis Event Note (ED) - Evaluation Sepsis Screening Result: No Definite Risk - Focused Exam Vital Signs: Vital Signs Temp Pulse Resp BP 04/24/21 21:06 36.6 C 90 20 127/80
== END 2021-04-24 21:36 | disposition home or self-care (01) ==
LOC: JD.ED 20:46
DX: S61.216A Laceration without foreign body of right little finger without damage to nail, initial encounter (principal); Z87.891 Personal history of nicotine dependence; W26.8XXA Contact with other sharp object(s), not elsewhere classified, initial encounter
CPT/HCPCS: 29130; 99282; 99282-25

== ENCOUNTER 2022-01-04 18:30 | Emergency (ER) | payer MEDICAID ==
[2022-01-04] MEDS ORDERED: Bupivacaine 0.5% 10 ML SDV INJECT ONE (19:06)
[2022-01-04] MEDS ORDERED: Lidocaine 1% 10 ML MDV INJECT ONE (19:06)
== END 2022-01-04 20:10 | disposition home or self-care (01) ==
LOC: JD.ED 18:30
DX: S61.216A Laceration without foreign body of right little finger without damage to nail, initial encounter (principal); E66.9 Obesity, unspecified; Z68.28 Body mass index [BMI] 28.0-28.9, adult; Z87.891 Personal history of nicotine dependence; W26.8XXA Contact with other sharp object(s), not elsewhere classified, initial encounter
CPT/HCPCS: 12001; 99282; J3490